=== PATIENT | female | born 1955 | race African-American/Black ===

== ENCOUNTER 2017-04-03 04:23 | Emergency (ER) | payer OTHER, MEDICAID ==
[~2017-04-03] VITALS: Ht 170.2 cm; Wt 81.6 kg
[~2017-04-03 04:23] MED LIST: ALBU6.7H IH; AMLO2.5T45 PO; ASPI-1159 PO; GUAI120015 PO; LEVO500T89 PO; LISI-604 PO; METO50TA5 PO; P20 PO
[2017-04-03 05:15] LABS: BASOPHILS % 1.3 % (0.0-2.0); HEMATOCRIT. 31.7 % (36.0-48.0); HEMOGLOBIN. 10.7 g/dL (12.0-16.0); LYMPHOCYTES % 18.2 % (20.0-50.0); MEAN CORPUSCULAR HEMOGLOBIN 32.4 pg (28.0-32.0); MEAN CORPUSCULAR VOLUME 96.3 fL (81.0-99.0); MEAN PLATELET VOLUME 8.1 fl (7.4-10.4); MONOCYTES % 7.4 % (2.0-8.0); NEUTROPHILS % 67.1 % (40.0-76.0); PLATELET 227 x1000/uL (130-400); RED CELL DISTRIBUTION WIDTH 15.1 % (11.6-14.6)
[2017-04-03 05:35] LABS: CARBON DIOXIDE 24 mEq/L (21-32); CHLORIDE 110 mEq/L (98-107)
[2017-04-03] MEDS: ENALAPRIL 2.5MG/2ML VIAL 2ML IV ONE (05:37)
[2017-04-03 07:56] VITALS: BP 144/62
== END 2017-04-03 07:57 | disposition home or self-care (01) ==
LOC: ER 04:23
DX: R04.0 Epistaxis (principal); I10 Essential (primary) hypertension; Z79.82 Long term (current) use of aspirin
CPT/HCPCS: 36415; 80053; 85025; 85610; 99284; J3490

== ENCOUNTER 2018-11-06 20:03 | Emergency (ER) | payer OTHER, MEDICAID ==
[~2018-11-06] VITALS: Ht 167.6 cm; Wt 83.0 kg
[~2018-11-06 20:03] MED LIST changes: -ASPI-1159 PO; +ASPI-1393 PO; +METO-539 PO; -METO50TA5 PO
[2018-11-06 22:47] LABS: HEMATOCRIT 41.3 % (36.0-48.0); HEMOGLOBIN 13.9 g/dL (12.0-16.0); MEAN CORPUSCULAR HEMOGLOBIN 31.3 pg (28.0-32.0); MEAN CORPUSCULAR VOLUME 93.2 fL (81.0-99.0); PLATELET 216 x1000/uL (130-400); RED BLOOD CELL COUNT 4.43 mill/uL (4.2-5.4); RED CELL DISTRIBUTION WIDTH 14.9 % (11.6-14.6)
[2018-11-06 22:55] LABS: CHLORIDE 105 mEq/L (98-107)
[2018-11-06] MEDS: METOPROLOL TARTRATE 50MG TABLET PO ONE (23:03)
[2018-11-06] MEDS: AMLODIPINE 10MG TABLET PO ONE (23:04)
[2018-11-06] MEDS: LISINOPRIL 20MG TABLET PO ONE (23:04)
[2018-11-07] MEDS: KETOROLAC 30MG/ML VIAL IV ONE (00:59)
[2018-11-07 01:37] VITALS: BP 145/70
== END 2018-11-07 01:59 | disposition home or self-care (01) ==
LOC: ER 20:03
DX: I10 Essential (primary) hypertension (principal); R20.2 Paresthesia of skin; J44.9 Chronic obstructive pulmonary disease, unspecified; Z79.899 Other long term (current) drug therapy
CPT/HCPCS: 36415; 80053; 85027; 93005; 96374; 99284; J1885; Z7610

== ENCOUNTER 2020-10-25 02:06 | Inpatient (IN) | payer MEDICARE, MEDICAID ==
[2020-10-25] VITALS (58 sets, daily range): BP systolic 108–167; BP diastolic 45–82
[~2020-10-25] VITALS: Ht 167.6 cm; Wt 84.8 kg
[~2020-10-25 02:06] MED LIST changes: -ALBU6.7H IH; +ALBU6.7H11 IH; -ASPI-1393 PO; +ASPI-1497 PO; -LISI-604 PO; +LISI20TA31 PO
[2020-10-25] MEDS ORDERED: MORPHINE SULFATE 4 MG/ML CPJ (NOT FOR IM USE) IV STA (02:17)
[2020-10-25] MEDS ORDERED: METHYLPREDNISOLONE SOD SUCC 125 MG/2 ML VIAL IV STA (02:17)
[2020-10-25] MEDS ORDERED: ONDANSETRON HCL 4MG/2ML INJ IV STA (02:17)
[2020-10-25] MEDS ORDERED: IPRATROPIUM BROMIDE (0.02%) 0.5MG/2.5ML NEB HHN STA (02:17)
[2020-10-25] MEDS ORDERED: ALBUTEROL (0.083%) 2.5MG/3ML NEB HHN SCH (02:30)
[2020-10-25] MEDS ORDERED: MIDAZOLAM HCL 100 MG in DEXT 5% WATER 80 ML IV ONE (02:30)
[2020-10-25] MEDS ORDERED: VECURONIUM BROMIDE 10 MG/VIAL IV ONE ×2 (02:30→07:50)
[2020-10-25] MEDS ORDERED: PROPOFOL 10MG/ML 100ML 100 ML IV ONE (02:30)
[2020-10-25] MEDS ORDERED: MIDAZOLAM HCL 100 MG in SODIUM CHLORIDE 0.9% 80 ML IV PRN (02:30)
[2020-10-25] MEDS ORDERED: ETOMIDATE 2MG/ML 10ML VIAL IV ONE ×2 (02:30→07:50)
[2020-10-25] MEDS ORDERED: MAGNESIUM 2 G PREMIX 50 ML IV ONE (02:30)
[2020-10-25 03:06] LABS: BASOPHILS % 0.6 % (0.0-2.0); EOSINOPHILS % 2.2 % (0.0-5.0); HEMATOCRIT. 37.9 % (36.0-48.0); HEMOGLOBIN. 12.4 g/dL (12.0-16.0); LYMPHOCYTES % 15.5 % (20.0-50.0); MEAN CORPUSCULAR VOLUME 97.5 fL (81.0-99.0); MEAN PLATELET VOLUME 9.4 fl (7.4-10.4); MONOCYTES % 4.1 % (2.0-8.0); NEUTROPHILS % 77.6 % (40.0-76.0); PLATELET 184 x1000/uL (130-400); RED BLOOD CELL COUNT 3.89 mill/uL (4.2-5.4)
[2020-10-25 03:13] LABS: CHLORIDE 111 mEq/L (98-107)
[2020-10-25 06:07] LABS: BG CARBOXYHEMOGLOBIN 0.2 % (0.5-1.5); BG FRACTION INSPIRED OXYGEN 100; BG HCO3 ACT 25.8 mmol/L (22.0-26.0); BG METHEMOGLOBIN 0.1 % (0.0-1.5); BG OXYHEMOGLOBIN 94.7 % (94.0-97.0); BG PCO2 57.4 mmHg (35.0-45.0); BG PO2 85.5 mmHg (75.0-100.0); BG SAMPLE SITE RIGHT RADIAL; BG TOTAL HEMOGLOBIN 12.7 g/dL (12.0-18.0); BG VENT MODE VENT - AC
[2020-10-25] MEDS ORDERED: SODIUM CHLORIDE 0.9% 10ML VIAL ONE (07:50)
[2020-10-25] MEDS ORDERED: ACETAMINOPHEN 325MG TABLET PO PRN (09:45)
[2020-10-25] MEDS: PANTOPRAZOLE SODIUM 40 MG/VIAL IV SCH (10:05)
[2020-10-25] MEDS: ENOXAPARIN 40MG/0.4ML SYR SUBCUT SCH (10:06)
[2020-10-25] MEDS: FUROSEMIDE 40MG/4ML VIAL IVP SCH ×2 (10:06→16:55)
[2020-10-25 11:09] LABS: *BARBITURATES SCREEN URINE NEGATIVE (NEGATIVE); *BENZODIAZEPINES SCREEN URINE PRESUMTIVE POSITIVE (NEGATIVE); METHADONE URINE SCREEN NEGATIVE (NEGATIVE); OPIATES URINE SCREEN PRESUMTIVE POSITIVE (NEGATIVE); PHENCYCLIDINE URINE SCREEN NEGATIVE (NEGATIVE)
[2020-10-25 11:10] LABS: *AMPHETAMINES SCREEN URINE NEGATIVE (NEGATIVE); *COCAINE SCREEN URINE NEGATIVE (NEGATIVE); CANNABINOID URINE SCREEN NEGATIVE (NEGATIVE)
[2020-10-25 12:50] LABS: CLARITY URINE CLOUDY (CLEAR); COLOR URINE DARK YELLOW (YELLOW); KETONES URINE NEGATIVE (NEGATIVE); LEUKOCYTE ESTERASE URINE NEGATIVE (NEGATIVE); NITRITE URINE NEGATIVE (NEGATIVE); OCCULT BLOOD URINE NEGATIVE (NEGATIVE); PH URINE 5.5 (4.5-8.0); PROTEIN URINE 3+ (NEGATIVE)
[2020-10-25] MEDS: IPRATROPIUM/ALBUTEROL 0.5-3(2.5)MG/3ML NEB HHN SCH ×2 (13:14→20:24)
[2020-10-25] MEDS: FENTANYL CITRATE/PF 2,500 MCG in SODIUM CHLORIDE 0.9% 200 ML IV PRN (13:55)
[2020-10-25 14:20] LABS: PROTHROMBIN TIME 11.1 sec (9.6-11.0)
[2020-10-25] MEDS: METHYLPREDNISOLONE SOD SUCC 40 MG/ML VIAL IV SCH (16:55)
[2020-10-26] VITALS (73 sets, daily range): BP systolic 99–167; BP diastolic 39–76
[2020-10-26] MEDS ORDERED: IOHEXOL-350 100 ML BOTTLE ONE (00:47)
[2020-10-26] MEDS: IPRATROPIUM/ALBUTEROL 0.5-3(2.5)MG/3ML NEB HHN SCH ×4 (01:22→20:02)
[2020-10-26] MEDS: MIDAZOLAM HCL 100 MG in SODIUM CHLORIDE 0.9% 80 ML IV PRN (05:02)
[2020-10-26 05:29] LABS: BASOPHILS % 0.4 % (0.0-2.0); HEMATOCRIT. 35.9 % (36.0-48.0); HEMOGLOBIN. 11.9 g/dL (12.0-16.0); LYMPHOCYTES % 14.3 % (20.0-50.0); MEAN CORPUSCULAR HEMOGLOBIN 31.8 pg (28.0-32.0); MEAN CORPUSCULAR VOLUME 96.2 fL (81.0-99.0); MEAN PLATELET VOLUME 9.9 fl (7.4-10.4); MONOCYTES % 5.8 % (2.0-8.0); NEUTROPHILS % 79.5 % (40.0-76.0); PLATELET 197 x1000/uL (130-400); RED BLOOD CELL COUNT 3.73 mill/uL (4.2-5.4); RED CELL DISTRIBUTION WIDTH 15.2 % (11.6-14.6)
[2020-10-26] MEDS: ENOXAPARIN 40MG/0.4ML SYR SUBCUT SCH (08:12)
[2020-10-26] MEDS: PANTOPRAZOLE SODIUM 40 MG/VIAL IV SCH (08:12)
[2020-10-26] MEDS: FUROSEMIDE 40MG/4ML VIAL IVP SCH (08:12)
[2020-10-26] MEDS: METHYLPREDNISOLONE SOD SUCC 40 MG/ML VIAL IV SCH ×2 (08:12→16:59)
[2020-10-26 08:57] LABS: BG CARBOXYHEMOGLOBIN 0.2 % (0.5-1.5); BG DEOXYHEMOGLOBIN 4.5 % (0.0-5.0); BG FRACTION INSPIRED OXYGEN 60; BG HCO3 ACT 20.4 mmol/L (22.0-26.0); BG METHEMOGLOBIN 0.3 % (0.0-1.5); BG OXYGEN SATURATION 95.5 % (92.0-98.5); BG PCO2 31.4 mmHg (35.0-45.0); BG PO2 79.7 mmHg (75.0-100.0); BG SAMPLE SITE RIGHT RADIAL; BG TOTAL HEMOGLOBIN 12.4 g/dL (12.0-18.0); BG VENT MODE VENT - AC
[2020-10-26] MEDS ORDERED: PIPERACILLIN/TAZOBACTAM 3.375 G in DEXTROSE 5% WATER 50 ML IV SCH (09:15)
[2020-10-26] MEDS: PIPERACILLIN/TAZOBACTAM 2.25G in DEXTROSE 5% WATER 50ML IV SCH ×3 (10:20→23:09)
[2020-10-27] VITALS (73 sets, daily range): BP systolic 106–185; BP diastolic 53–102
[2020-10-27] MEDS: IPRATROPIUM/ALBUTEROL 0.5-3(2.5)MG/3ML NEB HHN SCH ×4 (02:02→21:27)
[2020-10-27 05:50] LABS: BASOPHILS % 0.2 % (0.0-2.0); HEMATOCRIT. 41.2 % (36.0-48.0); HEMOGLOBIN. 13.7 g/dL (12.0-16.0); LYMPHOCYTES % 10.9 % (20.0-50.0); MEAN CORPUSCULAR HEMOGLOBIN 32.1 pg (28.0-32.0); MEAN CORPUSCULAR VOLUME 96.7 fL (81.0-99.0); MEAN PLATELET VOLUME 9.6 fl (7.4-10.4); MONOCYTES % 6.7 % (2.0-8.0); NEUTROPHILS % 82.2 % (40.0-76.0); PLATELET 218 x1000/uL (130-400); RED BLOOD CELL COUNT 4.26 mill/uL (4.2-5.4); RED CELL DISTRIBUTION WIDTH 15.4 % (11.6-14.6)
[2020-10-27] MEDS: PIPERACILLIN/TAZOBACTAM 2.25G in DEXTROSE 5% WATER 50ML IV SCH ×4 (06:00→23:38)
[2020-10-27] MEDS: PANTOPRAZOLE SODIUM 40 MG/VIAL IV SCH (08:34)
[2020-10-27] MEDS: METHYLPREDNISOLONE SOD SUCC 40 MG/ML VIAL IV SCH ×2 (08:34→17:38)
[2020-10-27] MEDS: ENOXAPARIN 40MG/0.4ML SYR SUBCUT SCH (08:35)
[2020-10-27 08:43] LABS: BG BASE EXCESS 2.2 mmol/L (-2.0-2.0); BG CARBOXYHEMOGLOBIN 0.5 % (0.5-1.5); BG DEOXYHEMOGLOBIN 6.9 % (0.0-5.0); BG FRACTION INSPIRED OXYGEN 60; BG HCO3 ACT 26.6 mmol/L (22.0-26.0); BG METHEMOGLOBIN 0.2 % (0.0-1.5); BG OXYGEN SATURATION 93.1 % (92.0-98.5); BG OXYHEMOGLOBIN 92.4 % (94.0-97.0); BG PCO2 40.6 mmHg (35.0-45.0); BG PH 7.434 (7.350-7.450); BG PO2 69.1 mmHg (75.0-100.0); BG SAMPLE SITE RIGHT RADIAL; BG TOTAL HEMOGLOBIN 13.9 g/dL (12.0-18.0); BG VENT MODE VENT - AC
[2020-10-27] MEDS: AMLODIPINE 5MG TABLET PO SCH (10:19)
[2020-10-27] MEDS: MIDAZOLAM HCL 100 MG in SODIUM CHLORIDE 0.9% 80 ML IV PRN (10:46)
[2020-10-27] MEDS: FENTANYL CITRATE/PF 2,500 MCG in SODIUM CHLORIDE 0.9% 200 ML IV PRN (10:47)
[2020-10-27] MEDS: SODIUM CHLORIDE 0.45% 1,000 ML IV SCH (11:33)
[2020-10-27] MEDS: DOCUSATE SODIUM SUGAR FREE 100MG/10ML UDC NG SCH (14:24)
[2020-10-27] MEDS: SILDENAFIL CITRATE 20MG TABLET PO SCH ×2 (14:24→21:27)
[2020-10-28] VITALS (96 sets, daily range): BP systolic 113–173; BP diastolic 56–113
[2020-10-28] MEDS: IPRATROPIUM/ALBUTEROL 0.5-3(2.5)MG/3ML NEB HHN SCH ×4 (02:13→19:51)
[2020-10-28 04:37] LABS: BASOPHILS % 0.4 % (0.0-2.0); HEMATOCRIT. 38.5 % (36.0-48.0); HEMOGLOBIN. 12.4 g/dL (12.0-16.0); MEAN CORPUSCULAR HEMOGLOBIN 31.1 pg (28.0-32.0); MEAN CORPUSCULAR VOLUME 96.4 fL (81.0-99.0); MEAN PLATELET VOLUME 9.3 fl (7.4-10.4); MONOCYTES % 6.3 % (2.0-8.0); NEUTROPHILS % 83.3 % (40.0-76.0); PLATELET 222 x1000/uL (130-400); RED CELL DISTRIBUTION WIDTH 15.3 % (11.6-14.6)
[2020-10-28] MEDS: SILDENAFIL CITRATE 20MG TABLET PO SCH ×3 (05:22→22:05)
[2020-10-28] MEDS: PIPERACILLIN/TAZOBACTAM 2.25G in DEXTROSE 5% WATER 50ML IV SCH ×4 (05:23→23:03)
[2020-10-28] MEDS: SODIUM CHLORIDE 0.45% 1,000 ML IV SCH (06:34)
[2020-10-28 07:51] LABS: BG BASE EXCESS -2.4 mmol/L (-2.0-2.0); BG CARBOXYHEMOGLOBIN 0.4 % (0.5-1.5); BG DEOXYHEMOGLOBIN 9.9 % (0.0-5.0); BG FRACTION INSPIRED OXYGEN 60; BG HCO3 ACT 23.6 mmol/L (22.0-26.0); BG METHEMOGLOBIN 0.1 % (0.0-1.5); BG OXYGEN SATURATION 90.1 % (92.0-98.5); BG OXYHEMOGLOBIN 89.6 % (94.0-97.0); BG PCO2 45.3 mmHg (35.0-45.0); BG PH 7.334 (7.350-7.450); BG PO2 63.2 mmHg (75.0-100.0); BG SAMPLE SITE RIGHT BRACHIAL; BG TOTAL HEMOGLOBIN 13.5 g/dL (12.0-18.0); BG TOTAL RESPIRATORY RATE 16 b/min; BG VENT MODE VENT - AC
[2020-10-28] MEDS: AMLODIPINE 5MG TABLET PO SCH ×2 (08:57→21:11)
[2020-10-28] MEDS: PANTOPRAZOLE SODIUM 40 MG/VIAL IV SCH (08:57)
[2020-10-28] MEDS: ENOXAPARIN 40MG/0.4ML SYR SUBCUT SCH (08:57)
[2020-10-28] MEDS: DOCUSATE SODIUM SUGAR FREE 100MG/10ML UDC NG SCH (08:57)
[2020-10-28] MEDS: METHYLPREDNISOLONE SOD SUCC 40 MG/ML VIAL IV SCH ×2 (08:58→17:17)
[2020-10-28] MEDS ORDERED: HYDRALAZINE 20MG/ML VIAL IV NR (09:30)
[2020-10-28 11:13] LABS: BG BASE EXCESS 0.2 mmol/L (-2.0-2.0); BG CARBOXYHEMOGLOBIN 0.3 % (0.5-1.5); BG DEOXYHEMOGLOBIN 14.2 % (0.0-5.0); BG FRACTION INSPIRED OXYGEN 40; BG METHEMOGLOBIN 0.3 % (0.0-1.5); BG OXYGEN SATURATION 85.7 % (92.0-98.5); BG OXYHEMOGLOBIN 85.2 % (94.0-97.0); BG PCO2 41.2 mmHg (35.0-45.0); BG PH 7.401 (7.350-7.450); BG PO2 51.6 mmHg (75.0-100.0); BG SAMPLE SITE RIGHT RADIAL; BG TOTAL HEMOGLOBIN 13.8 g/dL (12.0-18.0); BG VENT MODE VENT - CPAP
[2020-10-28] MEDS: MIDAZOLAM HCL 100 MG in SODIUM CHLORIDE 0.9% 80 ML IV PRN ×2 (13:06→20:04)
[2020-10-28 13:51] LABS: CLARITY URINE TURBID (CLEAR); COLOR URINE RED (YELLOW); KETONES URINE NEGATIVE (NEGATIVE); LEUKOCYTE ESTERASE URINE 2+ (NEGATIVE); NITRITE URINE POSITIVE (NEGATIVE); OCCULT BLOOD URINE 2+ (NEGATIVE); PROTEIN URINE 2+ (NEGATIVE); SPECIFIC GRAVITY URINE 1.025 (1.005-1.030); UROBILINOGEN URINE 0.2 E.U./dL (0.2-1.0)
[2020-10-29] VITALS (95 sets, daily range): BP systolic 105–191; BP diastolic 33–116
[2020-10-29] MEDS: IPRATROPIUM/ALBUTEROL 0.5-3(2.5)MG/3ML NEB HHN SCH ×4 (01:47→19:45)
[2020-10-29] MEDS: SODIUM CHLORIDE 0.45% 1,000 ML IV SCH (03:53)
[2020-10-29 04:30] LABS: BASOPHILS % 0.3 % (0.0-2.0); HEMATOCRIT. 37.6 % (36.0-48.0); HEMOGLOBIN. 12.5 g/dL (12.0-16.0); LYMPHOCYTES % 9.3 % (20.0-50.0); MEAN CORPUSCULAR HEMOGLOBIN 31.9 pg (28.0-32.0); MEAN CORPUSCULAR VOLUME 96.3 fL (81.0-99.0); MEAN PLATELET VOLUME 9.3 fl (7.4-10.4); MONOCYTES % 7.4 % (2.0-8.0); PLATELET 234 x1000/uL (130-400); RED CELL DISTRIBUTION WIDTH 15.1 % (11.6-14.6)
[2020-10-29] MEDS: SILDENAFIL CITRATE 20MG TABLET PO SCH ×3 (05:34→22:08)
[2020-10-29] MEDS: PIPERACILLIN/TAZOBACTAM 2.25G in DEXTROSE 5% WATER 50ML IV SCH ×4 (05:34→23:52)
[2020-10-29] MEDS: DOCUSATE SODIUM SUGAR FREE 100MG/10ML UDC NG SCH (08:58)
[2020-10-29] MEDS: METHYLPREDNISOLONE SOD SUCC 40 MG/ML VIAL IV SCH ×2 (08:58→17:28)
[2020-10-29] MEDS: AMLODIPINE 5MG TABLET PO SCH ×2 (08:58→20:54)
[2020-10-29] MEDS: PANTOPRAZOLE SODIUM 40 MG/VIAL IV SCH (09:04)
[2020-10-29] MEDS: FENTANYL CITRATE/PF 2,500 MCG in SODIUM CHLORIDE 0.9% 200 ML IV PRN (16:44)
[2020-10-30] VITALS (93 sets, daily range): BP systolic 110–166; BP diastolic 43–121
[2020-10-30] MEDS: IPRATROPIUM/ALBUTEROL 0.5-3(2.5)MG/3ML NEB HHN SCH ×4 (01:43→19:50)
[2020-10-30] MEDS: SODIUM CHLORIDE 0.45% 1,000 ML IV SCH ×2 (03:31→22:36)
[2020-10-30 04:42] LABS: BASOPHILS % 0.2 % (0.0-2.0); HEMATOCRIT. 37.7 % (36.0-48.0); HEMOGLOBIN. 12.6 g/dL (12.0-16.0); LYMPHOCYTES % 7.5 % (20.0-50.0); MEAN CORPUSCULAR HEMOGLOBIN 32.3 pg (28.0-32.0); MEAN CORPUSCULAR VOLUME 96.3 fL (81.0-99.0); MEAN PLATELET VOLUME 9.4 fl (7.4-10.4); MONOCYTES % 9.2 % (2.0-8.0); NEUTROPHILS % 83.1 % (40.0-76.0); PLATELET 213 x1000/uL (130-400); RED BLOOD CELL COUNT 3.92 mill/uL (4.2-5.4); RED CELL DISTRIBUTION WIDTH 15.3 % (11.6-14.6)
[2020-10-30] MEDS: MIDAZOLAM HCL 100 MG in SODIUM CHLORIDE 0.9% 80 ML IV PRN (04:50)
[2020-10-30] MEDS: PIPERACILLIN/TAZOBACTAM 2.25G in DEXTROSE 5% WATER 50ML IV SCH ×3 (06:13→17:26)
[2020-10-30] MEDS: SILDENAFIL CITRATE 20MG TABLET PO SCH ×3 (06:13→22:31)
[2020-10-30 07:47] LABS: BG BASE EXCESS 0.1 mmol/L (-2.0-2.0); BG CARBOXYHEMOGLOBIN 0.5 % (0.5-1.5); BG DEOXYHEMOGLOBIN 6.3 % (0.0-5.0); BG FRACTION INSPIRED OXYGEN 70; BG METHEMOGLOBIN 0.1 % (0.0-1.5); BG OXYGEN SATURATION 93.7 % (92.0-98.5); BG OXYHEMOGLOBIN 93.1 % (94.0-97.0); BG PO2 71.4 mmHg (75.0-100.0); BG SAMPLE SITE RIGHT RADIAL; BG TOTAL HEMOGLOBIN 13.5 g/dL (12.0-18.0); BG VENT MODE VENT - SIMV
[2020-10-30] MEDS: DOCUSATE SODIUM SUGAR FREE 100MG/10ML UDC NG SCH (10:21)
[2020-10-30] MEDS: AMLODIPINE 5MG TABLET PO SCH ×2 (10:21→20:24)
[2020-10-30] MEDS: PANTOPRAZOLE SODIUM 40 MG/VIAL IV SCH (10:21)
[2020-10-30] MEDS: METHYLPREDNISOLONE SOD SUCC 40 MG/ML VIAL IV SCH ×2 (10:21→17:26)
[2020-10-30] MEDS: HYDRALAZINE 20MG/ML VIAL IV PRN (15:51)
[2020-10-31] VITALS (89 sets, daily range): BP systolic 109–196; BP diastolic 57–98
[2020-10-31] MEDS: IPRATROPIUM/ALBUTEROL 0.5-3(2.5)MG/3ML NEB HHN SCH ×4 (01:41→20:31)
[2020-10-31] MEDS: PIPERACILLIN/TAZOBACTAM 2.25G in DEXTROSE 5% WATER 50ML IV SCH ×4 (02:23→17:36)
[2020-10-31 05:44] LABS: BASOPHILS % 0.2 % (0.0-2.0); HEMATOCRIT. 38.4 % (36.0-48.0); HEMOGLOBIN. 12.5 g/dL (12.0-16.0); MEAN CORPUSCULAR HEMOGLOBIN 31.5 pg (28.0-32.0); MEAN CORPUSCULAR VOLUME 96.9 fL (81.0-99.0); MEAN PLATELET VOLUME 9.7 fl (7.4-10.4); NEUTROPHILS % 69.8 % (40.0-76.0); PLATELET 215 x1000/uL (130-400); RED BLOOD CELL COUNT 3.96 mill/uL (4.2-5.4); RED CELL DISTRIBUTION WIDTH 15.7 % (11.6-14.6)
[2020-10-31] MEDS: SILDENAFIL CITRATE 20MG TABLET PO SCH ×3 (05:55→21:02)
[2020-10-31] MEDS ORDERED: FENTANYL CITRATE/PF 2,500 MCG in SODIUM CHLORIDE 0.9% 200 ML IV PRN (08:19)
[2020-10-31 09:33] LABS: BG BASE EXCESS 0.2 mmol/L (-2.0-2.0); BG CARBOXYHEMOGLOBIN 0.3 % (0.5-1.5); BG DEOXYHEMOGLOBIN 4.6 % (0.0-5.0); BG FRACTION INSPIRED OXYGEN 60; BG HCO3 ACT 25.6 mmol/L (22.0-26.0); BG METHEMOGLOBIN 0.3 % (0.0-1.5); BG OXYGEN SATURATION 95.4 % (92.0-98.5); BG OXYHEMOGLOBIN 94.8 % (94.0-97.0); BG PCO2 44.5 mmHg (35.0-45.0); BG PH 7.378 (7.350-7.450); BG PO2 76.8 mmHg (75.0-100.0); BG SAMPLE SITE RIGHT RADIAL; BG VENT MODE VENT - SIMV
[2020-10-31] MEDS: PANTOPRAZOLE SODIUM 40 MG/VIAL IV SCH (10:04)
[2020-10-31] MEDS: METHYLPREDNISOLONE SOD SUCC 40 MG/ML VIAL IV SCH ×2 (10:04→17:34)
[2020-10-31] MEDS: DOCUSATE SODIUM SUGAR FREE 100MG/10ML UDC NG SCH (10:04)
[2020-10-31] MEDS: AMLODIPINE 5MG TABLET PO SCH ×2 (10:05→21:02)
[2020-10-31 12:38] LABS: BG BASE EXCESS -0.1 mmol/L (-2.0-2.0); BG CARBOXYHEMOGLOBIN 0.7 % (0.5-1.5); BG DEOXYHEMOGLOBIN 6.2 % (0.0-5.0); BG FRACTION INSPIRED OXYGEN 50; BG HCO3 ACT 25.7 mmol/L (22.0-26.0); BG METHEMOGLOBIN 0.1 % (0.0-1.5); BG OXYGEN SATURATION 93.8 % (92.0-98.5); BG PCO2 46.5 mmHg (35.0-45.0); BG PH 7.361 (7.350-7.450); BG PO2 72.8 mmHg (75.0-100.0); BG SAMPLE SITE RIGHT RADIAL; BG VENT MODE VENT - CPAP
[2020-10-31] MEDS: SODIUM CHLORIDE 0.45% 1,000 ML IV SCH (17:34)
[2020-10-31] MEDS: HYDRALAZINE 20MG/ML VIAL IV PRN ×2 (17:35→23:57)
[2020-10-31] MEDS: ONDANSETRON HCL 4MG/2ML INJ IV PRN (20:46)
[2020-11-01] VITALS (66 sets, daily range): BP systolic 126–160; BP diastolic 57–98
[2020-11-01] MEDS: IPRATROPIUM/ALBUTEROL 0.5-3(2.5)MG/3ML NEB HHN SCH ×4 (00:58→20:41)
[2020-11-01 05:48] LABS: BASOPHILS % 0.1 % (0.0-2.0); HEMOGLOBIN. 12.4 g/dL (12.0-16.0); LYMPHOCYTES % 9.2 % (20.0-50.0); MEAN CORPUSCULAR HEMOGLOBIN 31.3 pg (28.0-32.0); MEAN CORPUSCULAR VOLUME 95.8 fL (81.0-99.0); MEAN PLATELET VOLUME 9.6 fl (7.4-10.4); MONOCYTES % 5.8 % (2.0-8.0); NEUTROPHILS % 84.9 % (40.0-76.0); PLATELET 227 x1000/uL (130-400); RED BLOOD CELL COUNT 3.97 mill/uL (4.2-5.4); RED CELL DISTRIBUTION WIDTH 15.6 % (11.6-14.6)
[2020-11-01] MEDS: SILDENAFIL CITRATE 20MG TABLET PO SCH ×3 (06:14→21:15)
[2020-11-01] MEDS: HYDRALAZINE 20MG/ML VIAL IV PRN (06:22)
[2020-11-01] MEDS: AMLODIPINE 5MG TABLET PO SCH ×3 (08:51→21:15)
[2020-11-01] MEDS: DOCUSATE SODIUM SUGAR FREE 100MG/10ML UDC NG SCH (08:51)
[2020-11-01] MEDS: PANTOPRAZOLE SODIUM 40 MG/VIAL IV SCH (08:51)
[2020-11-01] MEDS: METHYLPREDNISOLONE SOD SUCC 40 MG/ML VIAL IV SCH ×2 (08:51→16:39)
[2020-11-01] MEDS: ONDANSETRON HCL 4MG/2ML INJ IV PRN ×2 (09:00→19:59)
[2020-11-01] MEDS ORDERED: BISACODYL 5MG TABLET PO PRN (10:00)
[2020-11-01] MEDS: SODIUM CHLORIDE 0.45% 1,000 ML IV SCH ×2 (12:06→23:36)
[2020-11-02] VITALS (12 sets, daily range): BP systolic 129–155; BP diastolic 47–90
[2020-11-02] MEDS: IPRATROPIUM/ALBUTEROL 0.5-3(2.5)MG/3ML NEB HHN SCH ×4 (01:41→21:42)
[2020-11-02] MEDS: ONDANSETRON HCL 4MG/2ML INJ IV PRN (01:43)
[2020-11-02] MEDS: SILDENAFIL CITRATE 20MG TABLET PO SCH ×3 (06:25→21:30)
[2020-11-02 07:10] LABS: BASOPHILS % 0.2 % (0.0-2.0); EOSINOPHILS % 0.6 % (0.0-5.0); HEMATOCRIT. 34.9 % (36.0-48.0); HEMOGLOBIN. 11.6 g/dL (12.0-16.0); LYMPHOCYTES % 18.5 % (20.0-50.0); MEAN CORPUSCULAR HEMOGLOBIN 31.9 pg (28.0-32.0); MEAN CORPUSCULAR VOLUME 96.2 fL (81.0-99.0); MEAN PLATELET VOLUME 9.2 fl (7.4-10.4); MONOCYTES % 9.4 % (2.0-8.0); NEUTROPHILS % 71.3 % (40.0-76.0); PLATELET 185 x1000/uL (130-400); RED BLOOD CELL COUNT 3.62 mill/uL (4.2-5.4); RED CELL DISTRIBUTION WIDTH 14.7 % (11.6-14.6)
[2020-11-02 07:27] LABS: CHLORIDE 103 mEq/L (98-107)
[2020-11-02] MEDS: DOCUSATE SODIUM SUGAR FREE 100MG/10ML UDC NG SCH (08:21)
[2020-11-02] MEDS: METHYLPREDNISOLONE SOD SUCC 40 MG/ML VIAL IV SCH (08:21)
[2020-11-02] MEDS: SODIUM CHLORIDE 0.45% 1,000 ML IV SCH (08:21)
[2020-11-02] MEDS: PANTOPRAZOLE SODIUM 40 MG/VIAL IV SCH (08:21)
[2020-11-02] MEDS: ASPIRIN 81MG EC TABLET PO SCH (08:21)
[2020-11-02] MEDS: AMLODIPINE 10MG TABLET PO SCH ×2 (08:22→21:30)
[2020-11-02] MEDS: PREDNISONE 20MG TABLET PO SCH (08:22)
[2020-11-02] MEDS: LISINOPRIL 20MG TABLET PO SCH ×2 (08:22→21:33)
[2020-11-02] MEDS: METOPROLOL TARTRATE 50MG TABLET PO SCH ×2 (08:23→21:30)
[2020-11-03] VITALS (10 sets, daily range): BP systolic 116–156; BP diastolic 46–87
[2020-11-03] MEDS: SILDENAFIL CITRATE 20MG TABLET PO SCH ×3 (06:45→20:34)
[2020-11-03] MEDS: IPRATROPIUM BROMIDE (0.02%) 0.5MG/2.5ML NEB HHN SCH ×2 (07:02→21:38)
[2020-11-03] MEDS: DOCUSATE SODIUM SUGAR FREE 100MG/10ML UDC NG SCH (09:09)
[2020-11-03] MEDS: PANTOPRAZOLE SODIUM 40 MG/VIAL IV SCH (09:09)
[2020-11-03] MEDS: AMLODIPINE 10MG TABLET PO SCH ×2 (09:10→20:34)
[2020-11-03] MEDS: ASPIRIN 81MG EC TABLET PO SCH (09:10)
[2020-11-03] MEDS: PREDNISONE 20MG TABLET PO SCH ×2 (09:10→16:53)
[2020-11-03] MEDS: METOPROLOL TARTRATE 50MG TABLET PO SCH ×2 (09:10→20:34)
[2020-11-03] MEDS: LISINOPRIL 20MG TABLET PO SCH ×2 (09:10→20:34)
[2020-11-03] MEDS: IPRATROPIUM/ALBUTEROL 0.5-3(2.5)MG/3ML NEB HHN SCH (10:05)
[2020-11-03] MEDS ORDERED: GUAIFENESIN-DM 200MG-20MG/10ML UDC PO PRN (11:00)
[2020-11-03] MEDS: LORAZEPAM 2MG/ML CPJ IV PRN ×2 (14:54→20:27)
[2020-11-04] VITALS (13 sets, daily range): BP systolic 106–166; BP diastolic 49–82
[2020-11-04] MEDS: SILDENAFIL CITRATE 20MG TABLET PO SCH ×3 (06:20→22:46)
[2020-11-04] MEDS ORDERED: DOCUSATE SODIUM SUGAR FREE 100MG/10ML UDC PO SCH (09:00)
[2020-11-04] MEDS: PANTOPRAZOLE SODIUM 40 MG/VIAL IV SCH (09:56)
[2020-11-04] MEDS: PREDNISONE 20MG TABLET PO SCH ×2 (09:57→16:30)
[2020-11-04] MEDS: ASPIRIN 81MG EC TABLET PO SCH (09:57)
[2020-11-04] MEDS: AMLODIPINE 10MG TABLET PO SCH ×2 (10:02→21:05)
[2020-11-04] MEDS: LISINOPRIL 20MG TABLET PO SCH ×2 (10:04→21:06)
[2020-11-04] MEDS: DOCUSATE SODIUM 100MG CAPSULE PO SCH (10:06)
[2020-11-04] MEDS ORDERED: LIDOCAINE HCL/PF 1% 2ML VIAL ONE (11:38)
[2020-11-04] MEDS: IPRATROPIUM BROMIDE (0.02%) 0.5MG/2.5ML NEB HHN SCH ×2 (12:54→20:30)
[2020-11-04 13:22] LABS: BG BASE EXCESS 0.7 mmol/L (-2.0-2.0); BG CARBOXYHEMOGLOBIN 0.7 % (0.5-1.5); BG DEOXYHEMOGLOBIN 16.5 % (0.0-5.0); BG FRACTION INSPIRED OXYGEN 21; BG HCO3 ACT 24.6 mmol/L (22.0-26.0); BG METHEMOGLOBIN 0.2 % (0.0-1.5); BG OXYGEN SATURATION 83.4 % (92.0-98.5); BG OXYHEMOGLOBIN 82.6 % (94.0-97.0); BG PCO2 36.9 mmHg (35.0-45.0); BG PH 7.441 (7.350-7.450); BG PO2 47.3 mmHg (75.0-100.0); BG SAMPLE SITE RIGHT RADIAL; BG VENT MODE ROOM AIR
[2020-11-04] MEDS: LORAZEPAM 2MG/ML CPJ IV PRN (14:20)
[2020-11-04] MEDS: METOPROLOL TARTRATE 25MG TABLET PO SCH (20:10)
[2020-11-05] VITALS (9 sets, daily range): BP systolic 109–147; BP diastolic 53–89
[2020-11-05] MEDS: SILDENAFIL CITRATE 20MG TABLET PO SCH ×2 (05:42→14:33)
[2020-11-05] MEDS ORDERED: AMLO2.5T45 PO (08:29)
[2020-11-05] MEDS ORDERED: P20 PO (08:29)
[2020-11-05] MEDS ORDERED: METO25TA6 PO (08:29)
[2020-11-05] MEDS ORDERED: REV20 PO (08:29)
[2020-11-05] MEDS ORDERED: LISI20TA31 PO (08:29)
[2020-11-05] MEDS ORDERED: ALBU6.7H11 IH (08:29)
[2020-11-05] MEDS: IPRATROPIUM BROMIDE (0.02%) 0.5MG/2.5ML NEB HHN SCH ×2 (08:54→14:12)
[2020-11-05] MEDS: DOCUSATE SODIUM 100MG CAPSULE PO SCH (09:00)
[2020-11-05] MEDS: ASPIRIN 81MG EC TABLET PO SCH (09:12)
[2020-11-05] MEDS: PANTOPRAZOLE SODIUM 40 MG/VIAL IV SCH (09:14)
[2020-11-05] MEDS: METOPROLOL TARTRATE 25MG TABLET PO SCH (09:15)
[2020-11-05] MEDS: AMLODIPINE 10MG TABLET PO SCH (09:15)
[2020-11-05] MEDS: LISINOPRIL 20MG TABLET PO SCH (09:15)
[2020-11-05] MEDS: PREDNISONE 20MG TABLET PO SCH (09:16)
== END 2020-11-05 15:25 | disposition home or self-care (01) | DRG 870 ==
LOC: ER 02:06 → MICUSO 05:35 → EDBEDREQTM 05:40 → EDBEDREQ 05:40 → ENRESERV 07:16 → MICUNO 10-28 17:30 → 3WST 11-01 22:00
PROVIDERS: ADMIT Internal Medicine; ATTEND Internal Medicine
PROC: 5A1955Z Respiratory Ventilation, Greater than 96 Consecutive Hours (ICD-10-PCS; principal; 2020-10-25)
PROC: 0BH17EZ Insertion of Endotracheal Airway into Trachea, Via Natural or Artificial Opening (ICD-10-PCS; 2020-10-25)
PROC: 05HY33Z Insertion of Infusion Device into Upper Vein, Percutaneous Approach (ICD-10-PCS; 2020-10-27)
PROC: B54MZZA Ultrasonography of Right Upper Extremity Veins, Guidance (ICD-10-PCS; 2020-10-27)
DX: A41.9 Sepsis, unspecified organism (principal); J96.00 Acute respiratory failure, unspecified whether with hypoxia or hypercapnia; J18.9 Pneumonia, unspecified organism; I50.33 Acute on chronic diastolic (congestive) heart failure; E44.1 Mild protein-calorie malnutrition; N17.9 Acute kidney failure, unspecified; I47.2 Ventricular tachycardia; E87.8 Other disorders of electrolyte and fluid balance, not elsewhere classified; I27.20 Pulmonary hypertension, unspecified; F17.210 Nicotine dependence, cigarettes, uncomplicated; Z20.822 Contact with and (suspected) exposure to COVID-19; I11.0 Hypertensive heart disease with heart failure; I35.0 Nonrheumatic aortic (valve) stenosis; I34.0 Nonrheumatic mitral (valve) insufficiency; K59.00 Constipation, unspecified; E86.1 Hypovolemia; I25.10 Atherosclerotic heart disease of native coronary artery without angina pectoris; I49.3 Ventricular premature depolarization; J43.9 Emphysema, unspecified; R31.9 Hematuria, unspecified; Z68.30 Body mass index [BMI] 30.0-30.9, adult; R11.10 Vomiting, unspecified
CPT/HCPCS: 31500; 36415; 36600; 71045; 71275; 76937; 80048; 80053; 80305; 81003; 82375; 82805; 83036; 83605; 83735; 83880; 84145; 84443; 84484; 85025; 87070; 92610; 93005; 93306; 94002; 94003; 94640; 97110; 97162; 97166; 97530; 99291; A6261; C1725; C9113; J0360; J1650; J1940; J2060; J2250; J2270; J2405; J2543; J2704; J2920; J2930; J3010; J3475; J3490; J7050; J7060; J7512; Q9967; U0003; U0005; A4315

== ENCOUNTER 2021-05-26 12:30 | Inpatient (IN) | payer MEDICARE, MEDICAID ==
[~2021-05-26] VITALS: Ht 167.6 cm; Wt 82.6 kg
[~2021-05-26 12:30] MED LIST changes: -ALBU6.7H11 IH; +ALBU6.7H15 IH; -LEVO500T89 PO; -METO-539 PO; +METO25TA6 PO; +REV20 PO
[2021-05-26] MEDS ORDERED: IOHEXOL-350 100 ML BOTTLE ONE (13:02)
[2021-05-26 13:13] LABS: BASOPHILS % 1.8 % (0.0-2.0); EOSINOPHILS % 3.3 % (0.0-5.0); HEMATOCRIT. 29.5 % (36.0-48.0); HEMOGLOBIN. 9.6 g/dL (12.0-16.0); LYMPHOCYTES % 28.4 % (20.0-50.0); MEAN CORPUSCULAR HEMOGLOBIN 30.5 pg (28.0-32.0); MEAN CORPUSCULAR VOLUME 94.1 fL (81.0-99.0); MEAN PLATELET VOLUME 7.5 fl (7.4-10.4); MONOCYTES % 11.8 % (2.0-8.0); NEUTROPHILS % 54.7 % (40.0-76.0); PLATELET 316 x1000/uL (130-400); RED BLOOD CELL COUNT 3.13 mill/uL (4.2-5.4)
[2021-05-26 13:20] LABS: CHLORIDE 109 mEq/L (98-107)
[2021-05-26 13:27] LABS: ETHANOL BLOOD < 10 mg/dL
[2021-05-26 16:06] LABS: CLARITY URINE CLEAR (CLEAR); COLOR URINE YELLOW (YELLOW); KETONES URINE NEGATIVE (NEGATIVE); LEUKOCYTE ESTERASE URINE NEGATIVE (NEGATIVE); NITRITE URINE NEGATIVE (NEGATIVE); OCCULT BLOOD URINE NEGATIVE (NEGATIVE); PROTEIN URINE NEGATIVE (NEGATIVE); SPECIFIC GRAVITY URINE 1.037 (1.005-1.030); UROBILINOGEN URINE 0.2 E.U./dL (0.2-1.0)
[2021-05-26 16:15] LABS: *AMPHETAMINES SCREEN URINE NEGATIVE (NEGATIVE); *BARBITURATES SCREEN URINE NEGATIVE (NEGATIVE); *BENZODIAZEPINES SCREEN URINE NEGATIVE (NEGATIVE); *COCAINE SCREEN URINE NEGATIVE (NEGATIVE)
[2021-05-26 16:16] LABS: CANNABINOID URINE SCREEN NEGATIVE (NEGATIVE); METHADONE URINE SCREEN NEGATIVE (NEGATIVE); OPIATES URINE SCREEN PRESUMTIVE POSITIVE (NEGATIVE); PHENCYCLIDINE URINE SCREEN NEGATIVE (NEGATIVE)
[2021-05-26] MEDS ORDERED: SODIUM CHLORIDE 0.9% 1,000 ML IV ONE (18:15)
[2021-05-26 23:40] VITALS: BP 180/60
[2021-05-27] MEDS ORDERED: ONDANSETRON HCL 4MG/2ML INJ IV PRN (00:15)
[2021-05-27] MEDS: CLONIDINE 0.1MG TABLET PO PRN ×2 (00:25→09:51)
[2021-05-27] MEDS: ACETAMINOPHEN 325MG TABLET PO PRN (01:23)
[2021-05-27] MEDS: LORAZEPAM 1MG TABLET PO PRN (01:24)
[2021-05-27 03:55] VITALS: BP 114/42
[2021-05-27 06:29] LABS: CHLORIDE 108 mEq/L (98-107)
[2021-05-27 06:37] LABS: LDL CHOLESTEROL 65 mg/dL (5-100)
[2021-05-27 06:46] LABS: HDL CHOLESTEROL 30 mg/dL (40-59)
[2021-05-27 08:00] VITALS: BP 163/66
[2021-05-27 08:27] LABS: BASOPHILS % 0.6 % (0.0-2.0); EOSINOPHILS % 1.9 % (0.0-5.0); HEMATOCRIT. 27.4 % (36.0-48.0); LYMPHOCYTES % 27.6 % (20.0-50.0); MEAN CORPUSCULAR HEMOGLOBIN 30.8 pg (28.0-32.0); MEAN CORPUSCULAR VOLUME 93.2 fL (81.0-99.0); MEAN PLATELET VOLUME 8.5 fl (7.4-10.4); MONOCYTES % 12.4 % (2.0-8.0); NEUTROPHILS % 57.5 % (40.0-76.0); PLATELET 314 x1000/uL (130-400); RED BLOOD CELL COUNT 2.94 mill/uL (4.2-5.4); RED CELL DISTRIBUTION WIDTH 16.2 % (11.6-14.6)
[2021-05-27] MEDS ORDERED: AMLODIPINE 10MG TABLET PO SCH (09:00)
[2021-05-27] MEDS: ASPIRIN 81MG TABLET PO SCH (09:42)
[2021-05-27] MEDS: GUAIFENESIN 600MG ER TABLET PO SCH ×2 (09:42→20:28)
[2021-05-27] MEDS: ENOXAPARIN 40MG/0.4ML SYR SUBCUT SCH (09:43)
[2021-05-27] MEDS: LISINOPRIL 20MG TABLET PO SCH ×2 (09:50→20:28)
[2021-05-27 12:00] VITALS: BP 127/53
[2021-05-27] MEDS ORDERED: LORAZEPAM 2MG/ML CPJ IV NR (12:00)
[2021-05-27 16:00] VITALS: BP 140/68
[2021-05-27 20:00] VITALS: BP 135/57
[2021-05-27] MEDS ORDERED: IPRATROPIUM/ALBUTEROL 0.5-3(2.5)MG/3ML NEB HHN PRN (20:15)
[2021-05-27] MEDS: ATORVASTATIN CALCIUM 40MG TABLET PO SCH (20:28)
[2021-05-28] VITALS: BP 121/58
[2021-05-28 04:00] VITALS: BP 146/61
[2021-05-28] MEDS: LORAZEPAM 1MG TABLET PO PRN (05:10)
[2021-05-28 08:00] VITALS: BP 135/60
[2021-05-28 08:26] LABS: BASOPHILS % 1.2 % (0.0-2.0); EOSINOPHILS % 2.3 % (0.0-5.0); HEMATOCRIT. 28.8 % (36.0-48.0); HEMOGLOBIN. 9.5 g/dL (12.0-16.0); LYMPHOCYTES % 23.6 % (20.0-50.0); MEAN CORPUSCULAR HEMOGLOBIN 30.9 pg (28.0-32.0); MEAN CORPUSCULAR VOLUME 93.7 fL (81.0-99.0); MEAN PLATELET VOLUME 8.3 fl (7.4-10.4); MONOCYTES % 12.7 % (2.0-8.0); NEUTROPHILS % 60.2 % (40.0-76.0); PLATELET 304 x1000/uL (130-400); RED BLOOD CELL COUNT 3.07 mill/uL (4.2-5.4); RED CELL DISTRIBUTION WIDTH 16.3 % (11.6-14.6)
[2021-05-28] MEDS: LISINOPRIL 20MG TABLET PO SCH ×2 (09:13→20:40)
[2021-05-28] MEDS: ASPIRIN 81MG TABLET PO SCH (09:13)
[2021-05-28] MEDS: GUAIFENESIN 600MG ER TABLET PO SCH ×2 (09:13→20:40)
[2021-05-28] MEDS: ENOXAPARIN 40MG/0.4ML SYR SUBCUT SCH (09:13)
[2021-05-28 12:00] VITALS: BP 133/52
[2021-05-28 16:00] VITALS: BP 129/54
[2021-05-28 20:00] VITALS: BP 119/64
[2021-05-28] MEDS: ATORVASTATIN CALCIUM 40MG TABLET PO SCH (20:40)
[2021-05-29] VITALS (7 sets, daily range): BP systolic 110–170; BP diastolic 43–66
[2021-05-29] MEDS: ACETAMINOPHEN 325MG TABLET PO PRN (03:17)
[2021-05-29] MEDS: ASPIRIN 81MG TABLET PO SCH (08:59)
[2021-05-29] MEDS: ENOXAPARIN 40MG/0.4ML SYR SUBCUT SCH (08:59)
[2021-05-29] MEDS: LISINOPRIL 20MG TABLET PO SCH ×2 (08:59→20:54)
[2021-05-29] MEDS: GUAIFENESIN 600MG ER TABLET PO SCH ×2 (08:59→20:54)
[2021-05-29] MEDS ORDERED: FLUTICASONE/VILANTEROL 200-25 BLST.W.DEV ORI SCH (11:30)
[2021-05-29] MEDS: PREDNISONE 20MG TABLET PO SCH ×2 (12:19→17:45)
[2021-05-29] MEDS ORDERED: VISCOUS LIDOCAINE 2% 15 ML UDC MM PRN (14:00)
[2021-05-29] MEDS: ALBUTEROL (0.083%) 2.5MG/3ML NEB HHN SCH ×2 (14:01→22:28)
[2021-05-29] MEDS: CLONIDINE 0.1MG TABLET PO PRN (16:11)
[2021-05-29] MEDS: ATORVASTATIN CALCIUM 40MG TABLET PO SCH (20:54)
[2021-05-29] MEDS: BUDESONIDE 0.5MG/2ML NEB HHN SCH (22:29)
[2021-05-30] VITALS: BP 145/53
[2021-05-30 08:00] VITALS: BP 139/64
[2021-05-30] MEDS: BUDESONIDE 0.5MG/2ML NEB HHN SCH ×2 (08:16→22:02)
[2021-05-30] MEDS: ALBUTEROL (0.083%) 2.5MG/3ML NEB HHN SCH ×3 (08:16→22:02)
[2021-05-30] MEDS: LISINOPRIL 20MG TABLET PO SCH ×2 (09:09→21:28)
[2021-05-30] MEDS: GUAIFENESIN 600MG ER TABLET PO SCH ×2 (09:09→21:29)
[2021-05-30] MEDS: PREDNISONE 20MG TABLET PO SCH ×2 (09:10→17:32)
[2021-05-30] MEDS: ENOXAPARIN 40MG/0.4ML SYR SUBCUT SCH (09:10)
[2021-05-30] MEDS: ASPIRIN 81MG TABLET PO SCH (09:10)
[2021-05-30 12:00] VITALS: BP 141/61
[2021-05-30] MEDS ORDERED: CLOPIDOGREL 75MG TABLET PO SCH (14:30)
[2021-05-30] MEDS: CLONIDINE 0.1MG TABLET PO PRN (15:50)
[2021-05-30] MEDS: ACETAMINOPHEN 325MG TABLET PO PRN (15:50)
[2021-05-30 16:00] VITALS: BP 165/61
[2021-05-30 17:00] VITALS: BP 145/52
[2021-05-30] MEDS ORDERED: LOPERAMIDE HCL 2MG CAPSULE PO SCH (20:00)
[2021-05-30] MEDS: ATORVASTATIN CALCIUM 40MG TABLET PO SCH (21:29)
[2021-05-30 22:04] VITALS: BP 144/56
== END 2021-05-30 22:47 | DRG 64 ==
LOC: ER 12:43 → 8WST 14:22 → EDBEDREQ 14:28 → ENRESERV 21:28
PROVIDERS: ADMIT Internal Medicine; ATTEND Internal Medicine
DX: I63.9 Cerebral infarction, unspecified (principal); E43 Unspecified severe protein-calorie malnutrition; N17.0 Acute kidney failure with tubular necrosis; D64.9 Anemia, unspecified; E87.8 Other disorders of electrolyte and fluid balance, not elsewhere classified; I08.3 Combined rheumatic disorders of mitral, aortic and tricuspid valves; I12.9 Hypertensive chronic kidney disease with stage 1 through stage 4 chronic kidney disease, or unspecified chronic kidney disease; N18.2 Chronic kidney disease, stage 2 (mild); I27.20 Pulmonary hypertension, unspecified; Z20.822 Contact with and (suspected) exposure to COVID-19; J44.9 Chronic obstructive pulmonary disease, unspecified; R29.810 Facial weakness; Z87.891 Personal history of nicotine dependence; Z79.899 Other long term (current) drug therapy; Z68.29 Body mass index [BMI] 29.0-29.9, adult
CPT/HCPCS: 36415; 70496; 70498; 70551; 71045; 80048; 80053; 80061; 80305; 80320; 81003; 84484; 85025; 87426; 93005; 93306; 93970; 94640; 97162; 97166; 97530; 99291; J1650; J2060; J7512; J7626; Q9967; G0480

== ENCOUNTER 2021-05-30 22:35 | Inpatient (IN) | payer MEDICARE, MEDICAID ==
[~2021-05-30] VITALS: Ht 167.6 cm; Wt 82.5 kg
[2021-05-30 22:35] VITALS: BP 102/60
[~2021-05-30 22:35] MED LIST changes: -ASPI-1497 PO
[2021-05-30 22:45] VITALS: BP 102/60
[2021-05-30] MEDS ORDERED: CLONIDINE 0.1MG TABLET PO PRN (23:00)
[2021-05-30] MEDS ORDERED: ONDANSETRON HCL 4MG/2ML INJ IV PRN (23:00)
[2021-05-30] MEDS ORDERED: VISCOUS LIDOCAINE 2% 15 ML UDC MM PRN (23:00)
[2021-05-31] MEDS ORDERED: ALBUTEROL (0.083%) 2.5MG/3ML NEB HHN SCH
[2021-05-31] MEDS: ALBUTEROL (0.083%) 2.5MG/3ML NEB HHN SCH ×4 (02:07→20:25)
[2021-05-31 07:23] LABS: CHLORIDE 108 mEq/L (98-107)
[2021-05-31 07:44] LABS: BASOPHILS % 0.8 % (0.0-2.0); HEMATOCRIT. 28.8 % (36.0-48.0); HEMOGLOBIN. 9.6 g/dL (12.0-16.0); LYMPHOCYTES % 26.1 % (20.0-50.0); MEAN CORPUSCULAR HEMOGLOBIN 30.9 pg (28.0-32.0); MEAN CORPUSCULAR VOLUME 92.4 fL (81.0-99.0); MEAN PLATELET VOLUME 8.5 fl (7.4-10.4); MONOCYTES % 11.6 % (2.0-8.0); NEUTROPHILS % 61.5 % (40.0-76.0); PLATELET 274 x1000/uL (130-400); RED BLOOD CELL COUNT 3.12 mill/uL (4.2-5.4)
[2021-05-31 08:00] VITALS: BP 175/52
[2021-05-31] MEDS: LISINOPRIL 20MG TABLET PO SCH ×2 (08:30→20:50)
[2021-05-31] MEDS: ASPIRIN 81MG TABLET PO SCH (08:30)
[2021-05-31] MEDS: PREDNISONE 20MG TABLET PO SCH ×2 (08:30→17:44)
[2021-05-31] MEDS: CLOPIDOGREL 75MG TABLET PO SCH (08:30)
[2021-05-31] MEDS: GUAIFENESIN 600MG ER TABLET PO SCH ×2 (08:30→20:49)
[2021-05-31] MEDS: ENOXAPARIN 40MG/0.4ML SYR SUBCUT SCH (08:31)
[2021-05-31 09:30] VITALS: BP 157/42
[2021-05-31] MEDS: BUDESONIDE 0.5MG/2ML NEB HHN SCH ×2 (10:21→20:25)
[2021-05-31] MEDS ORDERED: DOCUSATE SODIUM 100MG CAPSULE PO SCH (14:45)
[2021-05-31] MEDS ORDERED: NA PHOS,M-B/NA PHOS,DI-BA ENEMA 118ML PR PRN (14:45)
[2021-05-31] MEDS ORDERED: LOPERAMIDE HCL 2MG CAPSULE PO PRN ×2 (14:45→17:00)
[2021-05-31 20:00] VITALS: BP 151/47
[2021-05-31] MEDS: ATORVASTATIN CALCIUM 40MG TABLET PO SCH (20:49)
[2021-06-01] MEDS: LORAZEPAM 1MG TABLET PO PRN (00:57)
[2021-06-01] MEDS: ALBUTEROL (0.083%) 2.5MG/3ML NEB HHN SCH ×3 (01:32→21:27)
[2021-06-01] MEDS: BUDESONIDE 0.5MG/2ML NEB HHN SCH ×2 (07:54→21:27)
[2021-06-01 08:00] VITALS: BP 166/58
[2021-06-01] MEDS: ASPIRIN 81MG TABLET PO SCH (10:21)
[2021-06-01] MEDS: ENOXAPARIN 40MG/0.4ML SYR SUBCUT SCH (10:21)
[2021-06-01] MEDS: CLOPIDOGREL 75MG TABLET PO SCH (10:22)
[2021-06-01] MEDS: GUAIFENESIN 600MG ER TABLET PO SCH ×2 (10:22→20:32)
[2021-06-01] MEDS: PREDNISONE 20MG TABLET PO SCH ×2 (10:22→18:22)
[2021-06-01] MEDS: DOCUSATE SODIUM 100MG CAPSULE PO PRN (10:22)
[2021-06-01] MEDS: LISINOPRIL 20MG TABLET PO SCH (10:23)
[2021-06-01] MEDS: BISACODYL 5MG TABLET PO PRN (10:23)
[2021-06-01] MEDS: LACTULOSE 20G/30ML UDC PO PRN ×2 (14:43→14:46)
[2021-06-01 20:00] VITALS: BP 161/62
[2021-06-01] MEDS: ATORVASTATIN CALCIUM 40MG TABLET PO SCH (20:32)
[2021-06-01] MEDS: METOPROLOL TARTRATE 25MG TABLET PO SCH (20:32)
[2021-06-01] MEDS: AMLODIPINE 5MG TABLET PO SCH (20:33)
[2021-06-02] MEDS: ALBUTEROL (0.083%) 2.5MG/3ML NEB HHN SCH ×4 (01:51→21:33)
[2021-06-02 02:12] VITALS: BP 105/45
[2021-06-02 06:23] VITALS: BP 148/51
[2021-06-02] MEDS: BUDESONIDE 0.5MG/2ML NEB HHN SCH ×2 (07:27→21:34)
[2021-06-02 08:00] VITALS: BP 153/34
[2021-06-02] MEDS: ASPIRIN 81MG TABLET PO SCH (08:45)
[2021-06-02] MEDS: BISACODYL 5MG TABLET PO PRN (08:45)
[2021-06-02] MEDS: DOCUSATE SODIUM 100MG CAPSULE PO PRN (08:45)
[2021-06-02] MEDS: GUAIFENESIN 600MG ER TABLET PO SCH ×2 (08:45→20:14)
[2021-06-02] MEDS: PREDNISONE 20MG TABLET PO SCH ×2 (08:45→16:59)
[2021-06-02] MEDS: CLOPIDOGREL 75MG TABLET PO SCH (08:45)
[2021-06-02] MEDS: AMLODIPINE 5MG TABLET PO SCH ×2 (08:45→20:15)
[2021-06-02] MEDS: METOPROLOL TARTRATE 25MG TABLET PO SCH ×2 (08:46→20:15)
[2021-06-02] MEDS: ENOXAPARIN 40MG/0.4ML SYR SUBCUT SCH (08:46)
[2021-06-02 20:00] VITALS: BP 165/64
[2021-06-02] MEDS: ATORVASTATIN CALCIUM 40MG TABLET PO SCH (20:14)
[2021-06-02 21:37] VITALS: BP 151/48
[2021-06-03] MEDS: ALBUTEROL (0.083%) 2.5MG/3ML NEB HHN SCH ×4 (03:04→20:05)
[2021-06-03 08:00] VITALS: BP 138/64
[2021-06-03] MEDS: CLOPIDOGREL 75MG TABLET PO SCH (09:05)
[2021-06-03] MEDS: ASPIRIN 81MG TABLET PO SCH (09:05)
[2021-06-03] MEDS: PREDNISONE 20MG TABLET PO SCH ×2 (09:05→17:13)
[2021-06-03] MEDS: AMLODIPINE 5MG TABLET PO SCH ×2 (09:05→21:04)
[2021-06-03] MEDS: GUAIFENESIN 600MG ER TABLET PO SCH ×2 (09:06→21:03)
[2021-06-03] MEDS: METOPROLOL TARTRATE 25MG TABLET PO SCH ×2 (09:06→21:05)
[2021-06-03] MEDS: ACETAMINOPHEN 325MG TABLET PO PRN (09:13)
[2021-06-03] MEDS: ENOXAPARIN 40MG/0.4ML SYR SUBCUT SCH (09:13)
[2021-06-03] MEDS: BUDESONIDE 0.5MG/2ML NEB HHN SCH (12:20)
[2021-06-03 20:00] VITALS: BP 159/48
[2021-06-03] MEDS: ATORVASTATIN CALCIUM 40MG TABLET PO SCH (21:03)
[2021-06-04] MEDS: ALBUTEROL (0.083%) 2.5MG/3ML NEB HHN SCH ×3 (02:06→14:23)
[2021-06-04 08:00] VITALS: BP 162/57
[2021-06-04] MEDS: METOPROLOL TARTRATE 25MG TABLET PO SCH ×2 (09:30→20:52)
[2021-06-04] MEDS: ASPIRIN 81MG TABLET PO SCH (09:30)
[2021-06-04] MEDS: GUAIFENESIN 600MG ER TABLET PO SCH ×2 (09:31→20:51)
[2021-06-04] MEDS: AMLODIPINE 5MG TABLET PO SCH ×2 (09:31→20:52)
[2021-06-04] MEDS: CLOPIDOGREL 75MG TABLET PO SCH (09:31)
[2021-06-04] MEDS: PREDNISONE 20MG TABLET PO SCH ×2 (09:31→18:44)
[2021-06-04] MEDS: DOCUSATE SODIUM 100MG CAPSULE PO PRN (09:32)
[2021-06-04] MEDS: ENOXAPARIN 40MG/0.4ML SYR SUBCUT SCH (09:32)
[2021-06-04] MEDS: ACETAMINOPHEN 325MG TABLET PO PRN (10:56)
[2021-06-04] MEDS: LORAZEPAM 1MG TABLET PO PRN (15:42)
[2021-06-04 20:00] VITALS: BP 148/44
[2021-06-04] MEDS: ATORVASTATIN CALCIUM 40MG TABLET PO SCH (20:52)
[2021-06-05 08:00] VITALS: BP 166/54
[2021-06-05] MEDS: GUAIFENESIN 600MG ER TABLET PO SCH ×2 (09:00→21:48)
[2021-06-05] MEDS: ASPIRIN 81MG TABLET PO SCH (10:16)
[2021-06-05] MEDS: METOPROLOL TARTRATE 25MG TABLET PO SCH ×2 (10:16→21:50)
[2021-06-05] MEDS: PREDNISONE 20MG TABLET PO SCH ×2 (10:16→17:52)
[2021-06-05] MEDS: CLOPIDOGREL 75MG TABLET PO SCH (10:16)
[2021-06-05] MEDS: AMLODIPINE 5MG TABLET PO SCH ×2 (10:17→21:51)
[2021-06-05] MEDS: ENOXAPARIN 40MG/0.4ML SYR SUBCUT SCH (10:18)
[2021-06-05] MEDS: ACETAMINOPHEN 325MG TABLET PO PRN ×2 (10:38→11:38)
[2021-06-05] MEDS ORDERED: ALBUTEROL (0.083%) 2.5MG/3ML NEB HHN PRN (15:00)
[2021-06-05 20:00] VITALS: BP 162/67
[2021-06-05] MEDS: ATORVASTATIN CALCIUM 40MG TABLET PO SCH (21:48)
[2021-06-06] MEDS: CLONIDINE 0.1MG TABLET PO SCH ×2 (00:28→21:07)
[2021-06-06 04:00] VITALS: BP 139/66
[2021-06-06] MEDS: IPRATROPIUM/ALBUTEROL 0.5-3(2.5)MG/3ML NEB HHN PRN (05:14)
[2021-06-06 08:00] VITALS: BP 144/42
[2021-06-06] MEDS: PREDNISONE 20MG TABLET PO SCH ×2 (08:53→17:47)
[2021-06-06] MEDS: ASPIRIN 81MG TABLET PO SCH (08:53)
[2021-06-06] MEDS: GUAIFENESIN 600MG ER TABLET PO SCH ×2 (08:53→21:06)
[2021-06-06] MEDS: METOPROLOL TARTRATE 25MG TABLET PO SCH ×2 (08:53→21:00)
[2021-06-06] MEDS: CLOPIDOGREL 75MG TABLET PO SCH (08:53)
[2021-06-06] MEDS: AMLODIPINE 5MG TABLET PO SCH ×2 (08:54→21:07)
[2021-06-06] MEDS: ENOXAPARIN 40MG/0.4ML SYR SUBCUT SCH (09:00)
[2021-06-06 10:27] LABS: BASOPHILS % 0.8 % (0.0-2.0); EOSINOPHILS % 0.2 % (0.0-5.0); HEMOGLOBIN. 11.2 g/dL (12.0-16.0); LYMPHOCYTES % 28.2 % (20.0-50.0); MEAN CORPUSCULAR HEMOGLOBIN 30.6 pg (28.0-32.0); MEAN CORPUSCULAR VOLUME 93.2 fL (81.0-99.0); MEAN PLATELET VOLUME 9.1 fl (7.4-10.4); MONOCYTES % 6.2 % (2.0-8.0); NEUTROPHILS % 64.6 % (40.0-76.0); PLATELET 272 x1000/uL (130-400); RED BLOOD CELL COUNT 3.65 mill/uL (4.2-5.4); RED CELL DISTRIBUTION WIDTH 16.9 % (11.6-14.6)
[2021-06-06] MEDS: ACETAMINOPHEN 325MG TABLET PO PRN (14:54)
[2021-06-06] MEDS ORDERED: METHYL SALICYLATE/MENTHOL CREAM 85GM TOP PRN (15:15)
[2021-06-06] MEDS ORDERED: LORAZEPAM 1MG TABLET PO PRN (15:15)
[2021-06-06] MEDS: DOCUSATE SODIUM 100MG CAPSULE PO PRN (18:06)
[2021-06-06 20:00] VITALS: BP 154/59
[2021-06-06] MEDS: ATORVASTATIN CALCIUM 40MG TABLET PO SCH (21:06)
[2021-06-06] MEDS: TRAZODONE HCL 50MG TABLET PO SCH (21:11)
[2021-06-07 08:00] VITALS: BP 133/56
[2021-06-07] MEDS: ASPIRIN 81MG TABLET PO SCH (10:14)
[2021-06-07] MEDS: CLOPIDOGREL 75MG TABLET PO SCH (10:14)
[2021-06-07] MEDS: PREDNISONE 20MG TABLET PO SCH ×2 (10:15→17:16)
[2021-06-07] MEDS: METOPROLOL TARTRATE 25MG TABLET PO SCH ×2 (10:21→21:00)
[2021-06-07] MEDS: AMLODIPINE 5MG TABLET PO SCH ×2 (10:22→21:13)
[2021-06-07] MEDS: ENOXAPARIN 40MG/0.4ML SYR SUBCUT SCH (10:24)
[2021-06-07] MEDS: GUAIFENESIN 600MG ER TABLET PO SCH ×2 (18:52→21:11)
[2021-06-07 20:00] VITALS: BP 153/63
[2021-06-07] MEDS: ATORVASTATIN CALCIUM 40MG TABLET PO SCH (21:13)
[2021-06-07] MEDS: CLONIDINE 0.1MG TABLET PO SCH (21:13)
[2021-06-07] MEDS: TRAZODONE HCL 50MG TABLET PO SCH (21:13)
[2021-06-07] MEDS: IPRATROPIUM/ALBUTEROL 0.5-3(2.5)MG/3ML NEB HHN PRN (21:55)
[2021-06-08] MEDS: ACETAMINOPHEN 325MG TABLET PO PRN ×4 (01:57→16:21)
[2021-06-08 08:00] VITALS: BP 170/49
[2021-06-08] MEDS: PREDNISONE 20MG TABLET PO SCH ×2 (08:34→18:02)
[2021-06-08] MEDS: ASPIRIN 81MG TABLET PO SCH (08:34)
[2021-06-08] MEDS: CLOPIDOGREL 75MG TABLET PO SCH (08:35)
[2021-06-08] MEDS: GUAIFENESIN 600MG ER TABLET PO SCH ×2 (08:35→21:20)
[2021-06-08] MEDS: AMLODIPINE 5MG TABLET PO SCH ×2 (08:35→21:21)
[2021-06-08] MEDS: ENOXAPARIN 40MG/0.4ML SYR SUBCUT SCH (08:38)
[2021-06-08] MEDS: METOPROLOL TARTRATE 25MG TABLET PO SCH ×2 (09:00→21:22)
[2021-06-08 20:00] VITALS: BP 160/82
[2021-06-08] MEDS: CLONIDINE 0.1MG TABLET PO SCH (21:20)
[2021-06-08] MEDS: TRAZODONE HCL 50MG TABLET PO SCH (21:21)
[2021-06-08] MEDS: ATORVASTATIN CALCIUM 40MG TABLET PO SCH (21:22)
[2021-06-09] MEDS: METOPROLOL TARTRATE 25MG TABLET PO SCH (08:52)
[2021-06-09] MEDS: ASPIRIN 81MG TABLET PO SCH (08:52)
[2021-06-09] MEDS: ENOXAPARIN 40MG/0.4ML SYR SUBCUT SCH (08:52)
[2021-06-09] MEDS: AMLODIPINE 5MG TABLET PO SCH (08:53)
[2021-06-09] MEDS: CLOPIDOGREL 75MG TABLET PO SCH (08:53)
[2021-06-09] MEDS: GUAIFENESIN 600MG ER TABLET PO SCH (08:53)
[2021-06-09] MEDS: PREDNISONE 20MG TABLET PO SCH (08:53)
[2021-06-09] MEDS ORDERED: AMLO5TAB88 PO (10:34)
[2021-06-09] MEDS ORDERED: ASPI-1406 MT (10:34)
[2021-06-09] MEDS ORDERED: LISI20TA31 PO (10:34)
[2021-06-09 13:17] VITALS: BP 136/51
[2021-06-09] MEDS: ACETAMINOPHEN 325MG TABLET PO PRN (13:42)
== END 2021-06-09 14:40 | disposition home health service (06) | DRG 56 ==
PROVIDERS: ADMIT Psychiatry & Neurology Neurology; ATTEND Internal Medicine
DX: I69.351 Hemiplegia and hemiparesis following cerebral infarction affecting right dominant side (principal); I63.9 Cerebral infarction, unspecified; F32.A Depression, unspecified; F41.9 Anxiety disorder, unspecified; I10 Essential (primary) hypertension; J44.9 Chronic obstructive pulmonary disease, unspecified; F01.50 Vascular dementia, unspecified severity, without behavioral disturbance, psychotic disturbance, mood disturbance, and anxiety; D64.9 Anemia, unspecified; E87.8 Other disorders of electrolyte and fluid balance, not elsewhere classified; I35.0 Nonrheumatic aortic (valve) stenosis; Z99.81 Dependence on supplemental oxygen; Z87.891 Personal history of nicotine dependence; N28.9 Disorder of kidney and ureter, unspecified; R26.89 Other abnormalities of gait and mobility; Z87.09 Personal history of other diseases of the respiratory system
CPT/HCPCS: 36415; 80048; 85025; 92523; 92610; 93970; 94640; 97110; 97112; 97116; 97162; 97166; 97530; 97535; J1650; J7512; J7626

== ENCOUNTER 2021-09-26 02:36 | Inpatient (IN) | payer MEDICARE, MEDICAID ==
[~2021-09-26] VITALS: Ht 165.1 cm; Wt 88.5 kg
[2021-09-26] VITALS (8 sets, daily range): BP systolic 133–164; BP diastolic 44–101
[~2021-09-26 02:36] MED LIST changes: +AMLO5TAB88 PO; +ASPI-1406 MT; -METO25TA6 PO; -P20 PO
[2021-09-26] MEDS ORDERED: METHYLPREDNISOLONE SOD SUCC 125 MG/2 ML VIAL IV STA (02:40)
[2021-09-26] MEDS ORDERED: IPRATROPIUM BROMIDE (0.02%) 0.5MG/2.5ML NEB HHN STA (02:40)
[2021-09-26] MEDS ORDERED: MAGNESIUM 2 G PREMIX 50 ML IV ONE (02:45)
[2021-09-26] MEDS ORDERED: AZITHROMYCIN 500MG/250ML 250 ML IV ONE (03:15)
[2021-09-26] MEDS ORDERED: CEFTRIAXONE 1 G PREMIX 50 ML IV ONE (03:15)
[2021-09-26] MEDS: ALBUTEROL (0.083%) 2.5MG/3ML NEB HHN SCH ×3 (03:41→04:44)
[2021-09-26 04:35] LABS: BG CARBOXYHEMOGLOBIN 0.3 % (0.5-1.5); BG DEOXYHEMOGLOBIN 1.8 % (0.0-5.0); BG FRACTION INSPIRED OXYGEN 50; BG HCO3 ACT 22.3 mmol/L (22.0-26.0); BG METHEMOGLOBIN 0.3 % (0.0-1.5); BG OXYGEN SATURATION 98.2 % (92.0-98.5); BG OXYHEMOGLOBIN 97.6 % (94.0-97.0); BG PCO2 45.6 mmHg (35.0-45.0); BG PH 7.308 (7.350-7.450); BG SAMPLE SITE ALINE; BG TOTAL HEMOGLOBIN 12.1 g/dL (12.0-18.0); BG VENT MODE MASK - BIPAP
[2021-09-26 04:59] LABS: CHLORIDE 109 mEq/L (98-107)
[2021-09-26 06:28] LABS: BASOPHILS % 0.8 % (0.0-2.0); EOSINOPHILS % 0.7 % (0.0-5.0); HEMATOCRIT. 36.6 % (36.0-48.0); HEMOGLOBIN. 11.9 g/dL (12.0-16.0); LYMPHOCYTES % 7.2 % (20.0-50.0); MEAN CORPUSCULAR HEMOGLOBIN 29.9 pg (28.0-32.0); MEAN CORPUSCULAR VOLUME 92.3 fL (81.0-99.0); MEAN PLATELET VOLUME 10.1 fl (7.4-10.4); MONOCYTES % 1.7 % (2.0-8.0); NEUTROPHILS % 89.6 % (40.0-76.0); PLATELET 185 x1000/uL (130-400); RED BLOOD CELL COUNT 3.97 mill/uL (4.2-5.4)
[2021-09-26] MEDS ORDERED: FUROSEMIDE 20MG/2ML VIAL IVP SCH (10:00)
[2021-09-26] MEDS ORDERED: ONDANSETRON 4MG/5ML UDC PO SCH (10:00)
[2021-09-26] MEDS ORDERED: IPRATROPIUM/ALBUTEROL 0.5-3(2.5)MG/3ML NEB HHN PRN (10:15)
[2021-09-26] MEDS: METHYLPREDNISOLONE SOD SUCC 40 MG/ML VIAL IV SCH ×2 (11:34→18:52)
[2021-09-26] MEDS: AMLODIPINE 10MG TABLET PO SCH (11:34)
[2021-09-26] MEDS: IPRATROPIUM/ALBUTEROL 0.5-3(2.5)MG/3ML NEB HHN SCH ×3 (11:48→20:44)
[2021-09-26] MEDS: ACETAMINOPHEN 325MG TABLET PO PRN (16:41)
[2021-09-26] MEDS: FAMOTIDINE 20MG TABLET PO SCH (20:53)
[2021-09-26] MEDS ORDERED: NALOXONE HCL 0.4MG/ML VIAL IV PRN (22:15)
[2021-09-26] MEDS ORDERED: ZOLPIDEM TARTRATE 5MG TABLET PO PRN (22:15)
[2021-09-27] VITALS (12 sets, daily range): BP systolic 123–183; BP diastolic 61–86
[2021-09-27] MEDS: IPRATROPIUM/ALBUTEROL 0.5-3(2.5)MG/3ML NEB HHN SCH ×6 (00:27→20:25)
[2021-09-27] MEDS: METHYLPREDNISOLONE SOD SUCC 40 MG/ML VIAL IV SCH ×3 (01:04→20:04)
[2021-09-27] MEDS: HYDROCODONE/ACETAMINOPHEN 5/325MG TABLET PO PRN ×2 (01:04→09:43)
[2021-09-27] MEDS: AMLODIPINE 10MG TABLET PO SCH (09:08)
[2021-09-27] MEDS: CLONIDINE 0.1MG TABLET PO SCH ×2 (16:13→21:09)
[2021-09-27] MEDS: SILDENAFIL CITRATE 20MG TABLET PO SCH ×2 (16:13→21:09)
[2021-09-27] MEDS: LISINOPRIL 20MG TABLET PO SCH (18:22)
[2021-09-27] MEDS: GUAIFENESIN 600MG ER TABLET PO SCH (20:04)
[2021-09-27] MEDS: FAMOTIDINE 20MG TABLET PO SCH (20:04)
[2021-09-28] VITALS (12 sets, daily range): BP systolic 120–157; BP diastolic 46–75
[2021-09-28] MEDS: IPRATROPIUM/ALBUTEROL 0.5-3(2.5)MG/3ML NEB HHN SCH ×6 (00:05→21:10)
[2021-09-28] MEDS: SILDENAFIL CITRATE 20MG TABLET PO SCH ×3 (06:04→21:35)
[2021-09-28] MEDS: CLONIDINE 0.1MG TABLET PO SCH ×3 (06:04→21:35)
[2021-09-28] MEDS: ASPIRIN 81MG EC TABLET PO SCH (08:12)
[2021-09-28] MEDS: METHYLPREDNISOLONE SOD SUCC 40 MG/ML VIAL IV SCH (08:12)
[2021-09-28] MEDS: GUAIFENESIN 600MG ER TABLET PO SCH ×2 (08:12→20:04)
[2021-09-28] MEDS: AMLODIPINE 10MG TABLET PO SCH (08:13)
[2021-09-28] MEDS: LISINOPRIL 20MG TABLET PO SCH ×2 (08:13→18:05)
[2021-09-28 09:05] LABS: BASOPHILS % 0.7 % (0.0-2.0); EOSINOPHILS % 0.1 % (0.0-5.0); HEMATOCRIT. 31.6 % (36.0-48.0); HEMOGLOBIN. 10.4 g/dL (12.0-16.0); LYMPHOCYTES % 10.1 % (20.0-50.0); MEAN CORPUSCULAR VOLUME 90.8 fL (81.0-99.0); MEAN PLATELET VOLUME 9.8 fl (7.4-10.4); MONOCYTES % 3.5 % (2.0-8.0); NEUTROPHILS % 85.6 % (40.0-76.0); PLATELET 191 x1000/uL (130-400); RED BLOOD CELL COUNT 3.48 mill/uL (4.2-5.4); RED CELL DISTRIBUTION WIDTH 16.5 % (11.6-14.6)
[2021-09-28] MEDS: ENOXAPARIN 40MG/0.4ML SYR SUBCUT SCH (10:29)
[2021-09-28] MEDS ORDERED: SODIUM CHLORIDE 45ML SPRAY NS PRN (15:00)
[2021-09-28] MEDS ORDERED: SODIUM CHLORIDE 0.9% 500 ML IV ONE (16:00)
[2021-09-28] MEDS: FAMOTIDINE 20MG TABLET PO SCH (20:04)
[2021-09-29] VITALS (12 sets, daily range): BP systolic 118–156; BP diastolic 51–80
[2021-09-29] MEDS: IPRATROPIUM/ALBUTEROL 0.5-3(2.5)MG/3ML NEB HHN SCH ×6 (00:38→21:21)
[2021-09-29] MEDS: SILDENAFIL CITRATE 20MG TABLET PO SCH ×3 (05:08→21:00)
[2021-09-29] MEDS: CLONIDINE 0.1MG TABLET PO SCH ×3 (05:08→21:00)
[2021-09-29 06:20] LABS: BASOPHILS % 0.3 % (0.0-2.0); EOSINOPHILS % 0.2 % (0.0-5.0); HEMATOCRIT. 31.5 % (36.0-48.0); HEMOGLOBIN. 10.3 g/dL (12.0-16.0); LYMPHOCYTES % 24.9 % (20.0-50.0); MEAN CORPUSCULAR VOLUME 91.6 fL (81.0-99.0); MEAN PLATELET VOLUME 9.7 fl (7.4-10.4); MONOCYTES % 8.3 % (2.0-8.0); NEUTROPHILS % 66.3 % (40.0-76.0); PLATELET 171 x1000/uL (130-400); RED BLOOD CELL COUNT 3.44 mill/uL (4.2-5.4); RED CELL DISTRIBUTION WIDTH 17.2 % (11.6-14.6)
[2021-09-29] MEDS: ENOXAPARIN 40MG/0.4ML SYR SUBCUT SCH (08:39)
[2021-09-29] MEDS: LISINOPRIL 20MG TABLET PO SCH ×2 (08:40→16:34)
[2021-09-29] MEDS: GUAIFENESIN 600MG ER TABLET PO SCH ×2 (08:40→20:55)
[2021-09-29] MEDS: ASPIRIN 81MG EC TABLET PO SCH (08:40)
[2021-09-29] MEDS: METHYLPREDNISOLONE SOD SUCC 40 MG/ML VIAL IV SCH (08:40)
[2021-09-29] MEDS: AMLODIPINE 10MG TABLET PO SCH (08:40)
[2021-09-29] MEDS: FAMOTIDINE 20MG TABLET PO SCH (20:55)
[2021-09-30] VITALS (11 sets, daily range): BP systolic 130–149; BP diastolic 53–102
[2021-09-30] MEDS: IPRATROPIUM/ALBUTEROL 0.5-3(2.5)MG/3ML NEB HHN SCH ×4 (01:13→12:18)
[2021-09-30] MEDS: SILDENAFIL CITRATE 20MG TABLET PO SCH ×2 (05:43→13:41)
[2021-09-30] MEDS: CLONIDINE 0.1MG TABLET PO SCH ×2 (05:43→13:41)
[2021-09-30] MEDS: ASPIRIN 81MG EC TABLET PO SCH (09:18)
[2021-09-30] MEDS: AMLODIPINE 10MG TABLET PO SCH (09:18)
[2021-09-30] MEDS: LISINOPRIL 20MG TABLET PO SCH (09:18)
[2021-09-30] MEDS: GUAIFENESIN 600MG ER TABLET PO SCH (09:18)
[2021-09-30] MEDS: ENOXAPARIN 40MG/0.4ML SYR SUBCUT SCH (09:27)
[2021-09-30] MEDS: METHYLPREDNISOLONE SOD SUCC 40 MG/ML VIAL IV SCH (09:28)
[2021-09-30] MEDS: ACETAMINOPHEN 325MG TABLET PO PRN (09:32)
[2021-09-30] MEDS ORDERED: MED4 MT (09:46)
[2021-09-30] MEDS ORDERED: SODI45SP7 NS (09:46)
[2021-09-30] MEDS ORDERED: AMLO10TA80 PO (09:46)
[2021-09-30] MEDS ORDERED: FAMO20TA8 PO (09:46)
[2021-09-30] MEDS ORDERED: CLON0.1T PO (09:46)
== END 2021-09-30 16:20 | disposition home health service (06) | DRG 189 ==
LOC: ER 02:36 → 5EST 04:06 → EDBEDREQ 04:27 → EDBEDREQTM 04:27 → EDBEDREQSVC 08:20 → EDBEDREQTM 08:21 → ENRESERV 08:25
PROVIDERS: ADMIT Internal Medicine; ATTEND Internal Medicine
PROC: 5A09357 Assistance with Respiratory Ventilation, Less than 24 Consecutive Hours, Continuous Positive Airway Pressure (ICD-10-PCS; principal; 2021-09-26)
DX: J96.21 Acute and chronic respiratory failure with hypoxia (principal); J18.9 Pneumonia, unspecified organism; N17.9 Acute kidney failure, unspecified; I50.22 Chronic systolic (congestive) heart failure; J96.22 Acute and chronic respiratory failure with hypercapnia; J43.9 Emphysema, unspecified; I11.0 Hypertensive heart disease with heart failure; I35.0 Nonrheumatic aortic (valve) stenosis; I27.20 Pulmonary hypertension, unspecified; D64.9 Anemia, unspecified; E87.8 Other disorders of electrolyte and fluid balance, not elsewhere classified; Z86.73 Personal history of transient ischemic attack (TIA), and cerebral infarction without residual deficits; Z87.891 Personal history of nicotine dependence; Z79.82 Long term (current) use of aspirin; Z20.822 Contact with and (suspected) exposure to COVID-19
CPT/HCPCS: 36415; 36600; 71045; 80048; 80053; 82375; 82805; 83605; 83880; 84484; 85025; 85379; 87426; 93005; 93306; 94640; 94660; 99291; C9803; J0456; J0696; J1650; J1940; J2920; J2930; J3475

== ENCOUNTER 2021-11-09 05:21 | Inpatient (IN) | payer MEDICARE, MEDICAID ==
[~2021-11-09] VITALS: Ht 167.6 cm; Wt 84.8 kg
[~2021-11-09 05:21] MED LIST changes: +AMLO10TA80 PO; -AMLO2.5T45 PO; -AMLO5TAB88 PO; +CLON0.1T PO; +FAMO20TA8 PO; +MED4 MT; +SODI45SP7 NS
[2021-11-09] MEDS ORDERED: IPRATROPIUM BROMIDE (0.02%) 0.5MG/2.5ML NEB HHN STA (05:28)
[2021-11-09] MEDS ORDERED: METHYLPREDNISOLONE SOD SUCC 125 MG/2 ML VIAL IV STA (05:28)
[2021-11-09] MEDS ORDERED: MAGNESIUM 2 G PREMIX 50 ML IV ONE (05:30)
[2021-11-09] MEDS ORDERED: ALBUTEROL (0.083%) 2.5MG/3ML NEB HHN SCH (05:30)
[2021-11-09 05:52] LABS: EOSINOPHILS % 0.8 % (0.0-5.0); HEMATOCRIT. 35.5 % (36.0-48.0); HEMOGLOBIN. 11.3 g/dL (12.0-16.0); LYMPHOCYTES % 28.1 % (20.0-50.0); MEAN CORPUSCULAR HEMOGLOBIN 29.8 pg (28.0-32.0); MEAN CORPUSCULAR VOLUME 93.3 fL (81.0-99.0); MEAN PLATELET VOLUME 9.7 fl (7.4-10.4); MONOCYTES % 5.5 % (2.0-8.0); NEUTROPHILS % 64.6 % (40.0-76.0); PLATELET 209 x1000/uL (130-400); RED CELL DISTRIBUTION WIDTH 17.1 % (11.6-14.6)
[2021-11-09 06:00] LABS: CHLORIDE 108 mEq/L (98-107)
[2021-11-09 06:10] LABS: ETHANOL BLOOD < 10 mg/dL
[2021-11-09] MEDS ORDERED: FUROSEMIDE 40MG/4ML VIAL IVP NR (06:45)
[2021-11-09] MEDS ORDERED: ASPIRIN 81MG EC TABLET PO NR (06:45)
[2021-11-09 07:30] LABS: CHLORIDE 108 mEq/L (98-107)
[2021-11-09] MEDS ORDERED: IPRATROPIUM/ALBUTEROL 0.5-3(2.5)MG/3ML NEB HHN PRN ×2 (15:30→20:45)
[2021-11-09] MEDS: IPRATROPIUM/ALBUTEROL 0.5-3(2.5)MG/3ML NEB HHN SCH ×2 (15:41→20:58)
[2021-11-09 17:00] VITALS: BP 150/60
[2021-11-09] MEDS: METHYLPREDNISOLONE SOD SUCC 40 MG/ML VIAL IV SCH (17:41)
[2021-11-09] MEDS ORDERED: ACETAMINOPHEN 325MG TABLET PO PRN ×2 (18:15→20:45)
[2021-11-09] MEDS ORDERED: CLONIDINE 0.1MG TABLET PO PRN (18:15)
[2021-11-09 20:00] VITALS: BP 174/60
[2021-11-09] MEDS ORDERED: GUAIFENESIN 200MG/10ML SUGAR FREE UDC PO PRN (20:45)
[2021-11-09] MEDS ORDERED: ONDANSETRON HCL 4MG/2ML INJ IV PRN (20:45)
[2021-11-09] MEDS ORDERED: ZOLPIDEM TARTRATE 5MG TABLET PO PRN (20:45)
[2021-11-09] MEDS ORDERED: DIPHENHYDRAMINE 50MG/ML VIAL IV PRN (20:45)
[2021-11-09] MEDS: FAMOTIDINE 20MG TABLET PO SCH (20:57)
[2021-11-09] MEDS: CLONIDINE 0.1MG TABLET PO PRN (20:57)
[2021-11-09] MEDS: GUAIFENESIN 600MG ER TABLET PO SCH (20:57)
[2021-11-09] MEDS: ACETAMINOPHEN 325MG TABLET PO PRN (20:58)
[2021-11-09] MEDS: SODIUM CHLORIDE 0.9% INJ 3ML FLUSH IVF SCH (22:00)
[2021-11-10] VITALS: BP 134/54
[2021-11-10] MEDS: METHYLPREDNISOLONE SOD SUCC 40 MG/ML VIAL IV SCH ×4 (00:04→21:59)
[2021-11-10] MEDS: IPRATROPIUM/ALBUTEROL 0.5-3(2.5)MG/3ML NEB HHN SCH ×6 (00:37→21:11)
[2021-11-10] MEDS: ACETAMINOPHEN 325MG TABLET PO PRN (02:09)
[2021-11-10 04:00] VITALS: BP 163/62
[2021-11-10] MEDS: SODIUM CHLORIDE 0.9% INJ 3ML FLUSH IVF SCH ×3 (06:00→22:00)
[2021-11-10 08:00] VITALS: BP 162/59
[2021-11-10] MEDS: LOVENOX SUBCUT SCH (08:59)
[2021-11-10] MEDS: GUAIFENESIN 600MG ER TABLET PO SCH ×2 (08:59→22:00)
[2021-11-10] MEDS: CLONIDINE 0.1MG TABLET PO PRN ×2 (09:00→17:43)
[2021-11-10 12:00] VITALS: BP 149/52
[2021-11-10 16:00] VITALS: BP 168/58
[2021-11-10] MEDS ORDERED: METHYL SALICYLATE/MENTHOL CREAM 85GM TOP PRN (18:15)
[2021-11-10 20:00] VITALS: BP 124/76
[2021-11-10] MEDS: FAMOTIDINE 20MG TABLET PO SCH (21:59)
[2021-11-11] VITALS: BP 156/72
[2021-11-11] MEDS: IPRATROPIUM/ALBUTEROL 0.5-3(2.5)MG/3ML NEB HHN SCH ×5 (00:50→16:24)
[2021-11-11 04:00] VITALS: BP 150/64
[2021-11-11] MEDS: METHYLPREDNISOLONE SOD SUCC 40 MG/ML VIAL IV SCH (05:41)
[2021-11-11] MEDS: SODIUM CHLORIDE 0.9% INJ 3ML FLUSH IVF SCH (05:42)
[2021-11-11] MEDS: LOVENOX SUBCUT SCH (09:25)
[2021-11-11] MEDS: GUAIFENESIN 600MG ER TABLET PO SCH (09:25)
[2021-11-11 12:00] VITALS: BP 182/57
[2021-11-11 16:00] VITALS: BP 183/75
[2021-11-11 16:46] VITALS: BP 153/55
== END 2021-11-11 17:25 | disposition home or self-care (01) | DRG 189 ==
LOC: ER 05:41 → 7WST 09:18 → EDBEDREQ 09:27 → EDBEDREQTM 09:27 → CANRESERV 12:28 → ENRESERV 12:28 → EDBEDREQSVC 13:14 → ENRESERV 15:30
PROVIDERS: ADMIT Internal Medicine; ATTEND Internal Medicine
PROC: 5A09357 Assistance with Respiratory Ventilation, Less than 24 Consecutive Hours, Continuous Positive Airway Pressure (ICD-10-PCS; principal; 2021-11-09)
DX: J96.01 Acute respiratory failure with hypoxia (principal); J44.1 Chronic obstructive pulmonary disease with (acute) exacerbation; I13.0 Hypertensive heart and chronic kidney disease with heart failure and stage 1 through stage 4 chronic kidney disease, or unspecified chronic kidney disease; I50.20 Unspecified systolic (congestive) heart failure; N18.9 Chronic kidney disease, unspecified; E66.01 Morbid (severe) obesity due to excess calories; I27.20 Pulmonary hypertension, unspecified; D64.9 Anemia, unspecified; I35.0 Nonrheumatic aortic (valve) stenosis; Z20.822 Contact with and (suspected) exposure to COVID-19; Z68.30 Body mass index [BMI] 30.0-30.9, adult; Z79.899 Other long term (current) drug therapy; Z99.81 Dependence on supplemental oxygen; Z87.891 Personal history of nicotine dependence; Z86.73 Personal history of transient ischemic attack (TIA), and cerebral infarction without residual deficits
CPT/HCPCS: 36415; 71045; 80053; 80320; 83605; 83880; 84484; 85025; 87426; 87804; 93005; 94640; 94660; 99291; C9803; J1650; J1940; J2920; J2930; J3475; G0480

== ENCOUNTER 2023-11-02 04:26 | Inpatient (IN) | payer MEDICARE, MEDICAID ==
[~2023-11-02] VITALS: Ht 160 cm; Wt 82.6 kg
[2023-11-02] VITALS (18 sets, daily range): BP systolic 131–152; BP diastolic 56–135; PULSE 63–75; RESP 14–26; TEMP 97.8–98.4
[~2023-11-02 04:26] MED LIST changes: +AZIT250T MT; +BUDE90AE INH; -CLON0.1T PO; +FURO-151 MT; +HYDR50TA39 PO; +IPRA3AMP9 HHN; -LISI20TA31 PO; +LOSA100T33 MT; -MED4 MT; +P20 MT
[2023-11-02] MEDS: ALBUTEROL (0.083%) 2.5MG/3ML NEB HHN SCH (04:42)
[2023-11-02] MEDS: IPRATROPIUM BROMIDE (0.02%) 0.5MG/2.5ML NEB HHN STA (04:42)
[2023-11-02] MEDS: MAGNESIUM 2 G PREMIX 50 ML IV ONE (04:55)
[2023-11-02] MEDS: METHYLPREDNISOLONE SOD SUCC 125MG/2ML (ACT-O-VIAL) IV STA (04:55)
[2023-11-02] MEDS: ONDANSETRON HCL 4MG/2ML INJ IV STA (04:55)
[2023-11-02 05:32] LABS: BASOPHILS % 1.3 % (0.0-2.0); EOSINOPHILS % 1.4 % (0.0-5.0); HEMATOCRIT. 30.3 % (36.0-48.0); HEMOGLOBIN. 9.5 g/dL (12.0-16.0); LYMPHOCYTES % 27.6 % (20.0-50.0); MEAN CORPUSCULAR HEMOGLOBIN 30.1 pg (28.0-32.0); MEAN CORPUSCULAR HGB CONC 31.3 g/dL (31.0-37.0); MEAN CORPUSCULAR VOLUME 96.1 fL (81.0-99.0); MEAN PLATELET VOLUME 9.4 fl (7.4-10.4); NEUTROPHILS % 64.7 % (40.0-76.0); PLATELET 268 x1000/uL (130-400); RED BLOOD CELL COUNT 3.16 mill/uL (4.2-5.4); RED CELL DISTRIBUTION WIDTH 17.9 % (11.6-14.6); WHITE BLOOD COUNT 11.2 x1000/uL (4.5-11.0)
[2023-11-02 05:33] LABS: BG BASE EXCESS -4.3 mmol/L (-2.0-2.0); BG CARBOXYHEMOGLOBIN 0.3 % (0.5-1.5); BG DEOXYHEMOGLOBIN 0.5 % (0.0-5.0); BG FRACTION INSPIRED OXYGEN 100; BG HCO3 ACT 23.9 mmol/L (22.0-26.0); BG METHEMOGLOBIN 0.3 % (0.0-1.5); BG OXYGEN SATURATION 99.5 % (92.0-98.5); BG OXYHEMOGLOBIN 98.9 % (94.0-97.0); BG PCO2 59.9 mmHg (35.0-45.0); BG PH 7.218 (7.350-7.450); BG PO2 412.2 mmHg (75.0-100.0); BG SAMPLE SITE RIGHT RADIAL; BG VENT MODE MASK - BIPAP
[2023-11-02 05:38] LABS: CHLORIDE 107 mEq/L (98-107); POTASSIUM 4.8 mEq/L (3.5-5.1); SODIUM 140 mEq/L (136-145)
[2023-11-02 05:39] LABS: CALCIUM 8.7 mg/dL (8.7-10.4); CARBON DIOXIDE 23 mEq/L (21-32)
[2023-11-02 05:44] LABS: CREATININE 2.2 mg/dL (0.6-1.0); GLUCOSE 198 mg/dL (70-105); UREA NITROGEN BLOOD 35 mg/dL (9-23)
[2023-11-02 05:47] LABS: LACTIC ACID 3.9 mmol/L (0.4-2.0); TROPONIN I HIGH SENSITIVITY 346 ng/L (3.0-34)
[2023-11-02] MEDS: CEFTRIAXONE 1GM/50ML 50 ML IV ONE (06:25)
[2023-11-02] MEDS: AZITHROMYCIN 500MG/250ML 250 ML IV ONE (07:04)
[2023-11-02 08:01] LABS: TROPONIN I HIGH SENSITIVITY 337 ng/L (3.0-34)
[2023-11-02] MEDS: FUROSEMIDE 40MG/4ML VIAL IV SCH (09:45)
[2023-11-02] MEDS ORDERED: DEXTROSE 50% WATER 50ML SYRINGE IV PRN (09:45)
[2023-11-02 10:03] LABS: BG BASE EXCESS -1.9 mmol/L (-2.0-2.0); BG CARBOXYHEMOGLOBIN 0.3 % (0.5-1.5); BG DEOXYHEMOGLOBIN 7.6 % (0.0-5.0); BG FRACTION INSPIRED OXYGEN 40; BG HCO3 ACT 24.7 mmol/L (22.0-26.0); BG METHEMOGLOBIN 0.3 % (0.0-1.5); BG OXYGEN SATURATION 92.4 % (92.0-98.5); BG OXYHEMOGLOBIN 91.8 % (94.0-97.0); BG PCO2 51.1 mmHg (35.0-45.0); BG PH 7.303 (7.350-7.450); BG PO2 71.2 mmHg (75.0-100.0); BG SAMPLE SITE RIGHT RADIAL; BG TOTAL HEMOGLOBIN 9.7 g/dL (12.0-18.0); BG VENT MODE MASK - BIPAP
[2023-11-02 10:26] LABS: TROPONIN I HIGH SENSITIVITY 263 ng/L (3.0-34)
[2023-11-02] MEDS: IPRATROPIUM/ALBUTEROL 0.5-3(2.5)MG/3ML NEB HHN SCH (11:13)
[2023-11-02] MEDS: BLOOD SUGAR DIAGNOSTIC STRIP TEST SCH (13:35)
[2023-11-02] MEDS: METHYLPREDNISOLONE SOD SUCC 125MG/2ML (ACT-O-VIAL) IV SCH (17:00)
[2023-11-02 18:12] LABS: TROPONIN I HIGH SENSITIVITY 263 ng/L (3.0-34)
[2023-11-02] MEDS ORDERED: HYDR25TA MT (21:40)
[2023-11-02] MEDS ORDERED: LISI20TA31 MT (21:40)
[2023-11-02] MEDS ORDERED: METO-539 MT (21:40)
[2023-11-02] MEDS: FAMOTIDINE 20MG TABLET PO SCH (23:13)
[2023-11-02 23:25] LABS: TROPONIN I HIGH SENSITIVITY 255 ng/L (3.0-34)
[2023-11-03] VITALS (18 sets, daily range): BP systolic 127–165; BP diastolic 44–94; PULSE 67–100; RESP 14–30; TEMP 97.7–98.8; O2SAT 99–100
[2023-11-03] MEDS: HYDRALAZINE HCL 50MG TABLET PO SCH (05:13)
[2023-11-03 05:56] LABS: CALCIUM 8.9 mg/dL (8.7-10.4); POTASSIUM 4.9 mEq/L (3.5-5.1)
[2023-11-03 06:02] LABS: CREATININE 2.7 mg/dL (0.6-1.0)
[2023-11-03] MEDS: ACETAMINOPHEN 325MG TABLET PO PRN (06:25)
[2023-11-03 07:07] LABS: BASOPHILS % 0.3 % (0.0-2.0); HEMATOCRIT. 25.4 % (36.0-48.0); HEMOGLOBIN. 8.3 g/dL (12.0-16.0); LYMPHOCYTES % 16.7 % (20.0-50.0); MEAN CORPUSCULAR HEMOGLOBIN 30.7 pg (28.0-32.0); MEAN CORPUSCULAR HGB CONC 32.6 g/dL (31.0-37.0); MEAN CORPUSCULAR VOLUME 94.3 fL (81.0-99.0); MEAN PLATELET VOLUME 9.1 fl (7.4-10.4); MONOCYTES % 1.6 % (2.0-8.0); NEUTROPHILS % 81.4 % (40.0-76.0); PLATELET 199 x1000/uL (130-400); RED BLOOD CELL COUNT 2.69 mill/uL (4.2-5.4); RED CELL DISTRIBUTION WIDTH 17.7 % (11.6-14.6); WHITE BLOOD COUNT 3.1 x1000/uL (4.5-11.0)
[2023-11-03] MEDS ORDERED: CEFTRIAXONE 1GM/50ML 50 ML IV SCH (09:00)
[2023-11-03] MEDS: METOPROLOL TARTRATE 50MG TABLET PO SCH (09:00)
[2023-11-03] MEDS: HYDROCHLOROTHIAZIDE 25MG TABLET PO SCH (09:00)
[2023-11-03] MEDS: LISINOPRIL 20MG TABLET PO SCH (09:00)
[2023-11-03] MEDS: AMLODIPINE 10MG TABLET PO SCH (09:00)
[2023-11-03] MEDS: CEFTRIAXONE 1GM/50ML 50ML IV SCH (11:54)
[2023-11-03] MEDS: METHYLPREDNISOLONE SOD SUCC 40MG/ML (ACT-O-VIAL) IV SCH (11:55)
[2023-11-03] MEDS: VANCOMYCIN 1.5GM/250ML IV SCH (16:00)
[2023-11-03] MEDS: SILDENAFIL CITRATE 20MG TABLET PO SCH (21:33)
[2023-11-03] MEDS: MAGNESIUM/ALUMINUM HYDROXIDE/SIMETHICONE 30ML UDC PO PRN (22:41)
[2023-11-04] VITALS (15 sets, daily range): BP systolic 129–158; BP diastolic 58–117; PULSE 57–84; RESP 14–25; TEMP 97.1–98.4; O2SAT 94–99
[2023-11-04 17:56] LABS: POTASSIUM 5.5 mEq/L (3.5-5.1)
[2023-11-04 17:57] LABS: CALCIUM 8.8 mg/dL (8.7-10.4)
[2023-11-04 18:02] LABS: CREATININE 2.9 mg/dL (0.6-1.0)
[2023-11-04] MEDS: SODIUM POLYSTYRENE SULFONATE 15 G/60 ML BOT PO NR (20:45)
[2023-11-04] MEDS: LACTULOSE 20G/30ML UDC PO NR (20:45)
[2023-11-04] MEDS: AZITHROMYCIN 500MG/250ML IV SCH (20:45)
[2023-11-04 22:29] LABS: POTASSIUM 5.1 mEq/L (3.5-5.1)
[2023-11-04 22:30] LABS: CALCIUM 8.9 mg/dL (8.7-10.4)
[2023-11-05] VITALS (15 sets, daily range): BP systolic 131–166; BP diastolic 50–129; PULSE 65–85; RESP 12–28; TEMP 96.9–97.7; O2SAT 91–96
[2023-11-05] MEDS: AZITHROMYCIN 500 MG TABLET PO SCH (16:28)
[2023-11-05] MEDS ORDERED: AMLODIPINE 10MG TABLET PO SCH (16:30)
[2023-11-05] MEDS ORDERED: DEXTROSE 50% WATER 50ML SYRINGE IV PRN (17:00)
[2023-11-05] MEDS: INSULIN LISPRO 100 UNITS/ML SUBCUT SCH (17:51)
[2023-11-05] MEDS: BLOOD SUGAR DIAGNOSTIC STRIP TEST SCH (17:51)
[2023-11-05 21:45] LABS: CALCIUM 8.6 mg/dL (8.7-10.4)
[2023-11-05 21:49] LABS: CREATININE 2.8 mg/dL (0.6-1.0)
[2023-11-06] VITALS (16 sets, daily range): BP systolic 141–177; BP diastolic 62–109; PULSE 64–96; RESP 12–32; TEMP 97.1–98; O2SAT 95–97
[2023-11-06] MEDS: BUDESONIDE 0.5MG/2ML NEB HHN SCH (00:16)
[2023-11-06 05:15] LABS: CARBON DIOXIDE 28 mEq/L (21-32); CHLORIDE 100 mEq/L (98-107); SODIUM 138 mEq/L (136-145)
[2023-11-06 05:16] LABS: CALCIUM 8.3 mg/dL (8.7-10.4)
[2023-11-06 05:20] LABS: CREATININE 2.7 mg/dL (0.6-1.0); GLUCOSE 124 mg/dL (70-105)
[2023-11-06 05:21] LABS: UREA NITROGEN BLOOD 73 mg/dL (9-23)
[2023-11-06 06:05] LABS: HEMATOCRIT. 28.7 % (36.0-48.0); HEMOGLOBIN. 9.1 g/dL (12.0-16.0); MEAN CORPUSCULAR HEMOGLOBIN 30.3 pg (28.0-32.0); MEAN CORPUSCULAR HGB CONC 31.8 g/dL (31.0-37.0); MEAN CORPUSCULAR VOLUME 95.4 fL (81.0-99.0); MEAN PLATELET VOLUME 8.8 fl (7.4-10.4); PLATELET 209 x1000/uL (130-400); RED BLOOD CELL COUNT 3.01 mill/uL (4.2-5.4); RED CELL DISTRIBUTION WIDTH 17.8 % (11.6-14.6); WHITE BLOOD COUNT 3.7 x1000/uL (4.5-11.0)
[2023-11-06 07:25] LABS: DIFFERENTIAL COMMENT 1
[2023-11-06 10:03] LABS: BG BASE EXCESS 0.8 mmol/L (-2.0-2.0); BG CARBOXYHEMOGLOBIN 0.4 % (0.5-1.5); BG DEOXYHEMOGLOBIN 17.5 % (0.0-5.0); BG FRACTION INSPIRED OXYGEN 32; BG HCO3 ACT 25.5 mmol/L (22.0-26.0); BG METHEMOGLOBIN 0.1 % (0.0-1.5); BG OXYGEN SATURATION 82.4 % (92.0-98.5); BG PCO2 41.5 mmHg (35.0-45.0); BG PH 7.407 (7.350-7.450); BG PO2 46.5 mmHg (75.0-100.0); BG SAMPLE SITE LEFT RADIAL; BG TOTAL HEMOGLOBIN 10.9 g/dL (12.0-18.0); BG VENT MODE NASAL CANNULA
[2023-11-06 16:24] LABS: PLATELET ESTIMATE NORMAL
[2023-11-06] MEDS ORDERED: PULM50 HHN (18:05)
[2023-11-06] MEDS ORDERED: AMLO10TA80 PO (18:05)
[2023-11-06] MEDS ORDERED: IPRA3AMP9 HHN (18:05)
[2023-11-06] MEDS ORDERED: P50 MT (18:05)
[2023-11-06] MEDS: AMLODIPINE 10MG TABLET PO SCH (18:44)
[2023-11-06] MEDS: METHYLPREDNISOLONE SOD SUCC 40MG/ML (ACT-O-VIAL) IV SCH (18:44)
[2023-11-06] MEDS: ONDANSETRON HCL 4MG/2ML INJ IV PRN (22:54)
[2023-11-07] VITALS (13 sets, daily range): BP systolic 132–169; BP diastolic 60–84; PULSE 70–89; RESP 11–23; TEMP 97.4–98.3; O2SAT 98
[2023-11-07] MEDS ORDERED: CLONIDINE 0.1MG TABLET PO PRN (00:30)
[2023-11-07] MEDS: FUROSEMIDE 40MG TABLET PO SCH (09:40)
[2023-11-07 12:47] LABS: CHLORIDE 101 mEq/L (98-107); POTASSIUM 4.6 mEq/L (3.5-5.1); SODIUM 136 mEq/L (136-145)
[2023-11-07 12:48] LABS: CALCIUM 8.6 mg/dL (8.7-10.4); CARBON DIOXIDE 25 mEq/L (21-32)
[2023-11-07 12:53] LABS: CREATININE 2.8 mg/dL (0.6-1.0); GLUCOSE 153 mg/dL (70-105); UREA NITROGEN BLOOD 73 mg/dL (9-23)
[2023-11-07 12:55] LABS: ALANINE AMINOTRANSFERASE 91 IU/L (10-49); ALBUMIN 3.9 g/dL (3.2-4.8); ASPARTATE AMINOTRANSFERASE 25 IU/L (<34); BILIRUBIN TOTAL 0.6 mg/dL (0.1-1.0); PROTEIN TOTAL 6.6 g/dL (6.0-8.3)
[2023-11-07] MEDS: BUDESONIDE 0.5MG/2ML NEB HHN SCH (18:00)
[2023-11-08] VITALS (11 sets, daily range): BP systolic 130–160; BP diastolic 53–86; PULSE 66–89; RESP 15–24; TEMP 97.5–98; O2SAT 98–100
[2023-11-08 07:11] LABS: POTASSIUM 4.9 mEq/L (3.5-5.1)
[2023-11-08 07:12] LABS: CALCIUM 8.8 mg/dL (8.7-10.4)
[2023-11-08 07:17] LABS: CREATININE 3.3 mg/dL (0.6-1.0)
[2023-11-08] MEDS: PREDNISONE 20MG TABLET PO SCH (08:28)
[2023-11-09] MEDS ORDERED: PREDNISONE 20MG TABLET PO SCH (09:00)
== END 2023-11-08 17:01 | disposition home health service (06) | DRG 280 ==
LOC: ER 04:28 → 5EST 05:22 → EDBEDREQSVC 10:46
PROVIDERS: ADMIT Family Medicine; ATTEND Family Medicine
PROC: 5A09457 Assistance with Respiratory Ventilation, 24-96 Consecutive Hours, Continuous Positive Airway Pressure (ICD-10-PCS; principal; 2023-11-02)
DX: I13.0 Hypertensive heart and chronic kidney disease with heart failure and stage 1 through stage 4 chronic kidney disease, or unspecified chronic kidney disease (principal); I50.33 Acute on chronic diastolic (congestive) heart failure; I21.A1 Myocardial infarction type 2; J18.9 Pneumonia, unspecified organism; J96.21 Acute and chronic respiratory failure with hypoxia; J96.22 Acute and chronic respiratory failure with hypercapnia; N17.0 Acute kidney failure with tubular necrosis; J44.1 Chronic obstructive pulmonary disease with (acute) exacerbation; Z20.822 Contact with and (suspected) exposure to COVID-19; I27.20 Pulmonary hypertension, unspecified; I35.0 Nonrheumatic aortic (valve) stenosis; E78.5 Hyperlipidemia, unspecified; D64.9 Anemia, unspecified; I49.3 Ventricular premature depolarization; E11.22 Type 2 diabetes mellitus with diabetic chronic kidney disease; F41.9 Anxiety disorder, unspecified; N18.9 Chronic kidney disease, unspecified; E87.5 Hyperkalemia; E66.9 Obesity, unspecified; Z79.51 Long term (current) use of inhaled steroids; Z86.73 Personal history of transient ischemic attack (TIA), and cerebral infarction without residual deficits; Z79.899 Other long term (current) drug therapy; Z99.81 Dependence on supplemental oxygen
CPT/HCPCS: 36415; 36600; 71045; 80048; 80053; 80061; 82375; 82805; 82962; 83036; 83605; 83735; 83880; 84100; 84145; 84484; 85025; 85379; 87426; 87804; 93005; 93306; 94640; 94644; 94660; 97116; 97162; 99291; A6261; C1893; J0456; J0696; J1815; J1940; J2405; J2919; J2920; J3370; J3475; J7512; J7626

== ENCOUNTER → 2024-01-02 | Outpatient (CLI) | payer MEDICARE, MEDICAID ==
[~2024-01-02] MED LIST changes: +HYDR25TA MT; +LISI20TA31 MT; +METO-539 MT; +P50 MT; +PULM50 HHN
== END | disposition home or self-care (01) ==
LOC: CARD 10:44
PROVIDERS: ATTEND Internal Medicine
DX: I08.8 Other rheumatic multiple valve diseases (principal)
CPT/HCPCS: 93306

== ENCOUNTER 2024-07-16 13:52 | Inpatient (IN) | payer MEDICARE, MEDICAID ==
[~2024-07-16] VITALS: Ht 167.6 cm; Wt 74.4 kg
[~2024-07-16 13:52] MED LIST changes: -BUDE90AE INH; +BUDE90AE3 INH; +HYDR100T11 MT
[2024-07-16] MEDS: METHYLPREDNISOLONE SOD SUCC 125MG/2ML (ACT-O-VIAL) IV STA (14:04)
[2024-07-16] MEDS: MAGNESIUM 2 G PREMIX 50 ML IV ONE (14:06)
[2024-07-16 14:09] VITALS: RESP 26
[2024-07-16] MEDS: ALBUTEROL (0.083%) 2.5MG/3ML NEB HHN SCH (14:09)
[2024-07-16] MEDS: IPRATROPIUM BROMIDE (0.02%) 0.5MG/2.5ML NEB HHN STA (14:10)
[2024-07-16 14:15] LABS: BASOPHILS % 0.5 % (0.0-2.0); DIFFERENTIAL COMMENT 0; HEMATOCRIT. 31.5 % (36.0-48.0); HEMOGLOBIN. 9.7 g/dL (12.0-16.0); LYMPHOCYTES % 13.4 % (20.0-50.0); MEAN CORPUSCULAR HEMOGLOBIN 31.1 pg (28.0-32.0); MEAN CORPUSCULAR HGB CONC 30.9 g/dL (31.0-37.0); MEAN CORPUSCULAR VOLUME 100.7 fL (81.0-99.0); MEAN PLATELET VOLUME 8.1 fl (7.4-10.4); MONOCYTES % 1.9 % (2.0-8.0); NEUTROPHILS % 84.2 % (40.0-76.0); PLATELET 198 x1000/uL (130-400); RED BLOOD CELL COUNT 3.13 mill/uL (4.2-5.4); WHITE BLOOD COUNT 5.5 x1000/uL (4.5-11.0)
[2024-07-16 14:24] LABS: CHLORIDE 108 mEq/L (98-107); POTASSIUM 5.8 mEq/L (3.5-5.1); SODIUM 139 mEq/L (136-145)
[2024-07-16 14:25] LABS: CALCIUM 7.5 mg/dL (8.7-10.4); CARBON DIOXIDE 17 mEq/L (21-32)
[2024-07-16 14:30] LABS: GLUCOSE 150 mg/dL (70-105)
[2024-07-16 14:32] LABS: ALANINE AMINOTRANSFERASE 17 IU/L (10-49); ALBUMIN 3.4 g/dL (3.2-4.8); ASPARTATE AMINOTRANSFERASE 27 IU/L (<34); BILIRUBIN DIRECT 0.2 mg/dL (<=3.0); BILIRUBIN TOTAL 0.5 mg/dL (0.1-1.0)
[2024-07-16 14:36] LABS: CREATININE 6.9 mg/dL (0.6-1.0); UREA NITROGEN BLOOD 116 mg/dL (9-23)
[2024-07-16 14:37] LABS: TROPONIN I HIGH SENSITIVITY 435 ng/L (3.0-34)
[2024-07-16 14:38] LABS: PROTHROMBIN TIME 10.4 sec (9.6-11.0)
[2024-07-16 16:18] LABS: INFLUENZA TYPE A Presumptive Negative (Pres. Neg.); INFLUENZA TYPE B Presumptive Negative (Pres. Neg.)
[2024-07-16] MEDS: FUROSEMIDE 40MG/4ML VIAL IVP NR (16:27)
[2024-07-16] MEDS: ENOXAPARIN 80MG/0.8ML SYR SUBCUT NR (16:30)
[2024-07-16 17:33] VITALS: RESP 27
[2024-07-16] MEDS ORDERED: IPRATROPIUM/ALBUTEROL 0.5-3(2.5)MG/3ML NEB HHN PRN (17:45)
[2024-07-16] MEDS ORDERED: ACETAMINOPHEN 325MG TABLET PO PRN (17:45)
[2024-07-16] MEDS ORDERED: MAGNESIUM/ALUMINUM HYDROXIDE/SIMETHICONE 30ML UDC PO PRN (17:45)
[2024-07-16] MEDS ORDERED: BUDESONIDE 0.5MG/2ML NEB HHN SCH (18:00)
[2024-07-16] MEDS ORDERED: ASPIRIN 81MG EC TABLET PO SCH (18:00)
[2024-07-16] MEDS ORDERED: AMLODIPINE 5MG TABLET PO SCH (18:00)
[2024-07-16 19:29] LABS: BG CARBOXYHEMOGLOBIN 0.7 % (0.5-1.5); BG DEOXYHEMOGLOBIN 1.8 % (0.0-5.0); BG FRACTION INSPIRED OXYGEN 60; BG HCO3 ACT 12.5 mmol/L (21.0-28.0); BG METHEMOGLOBIN 0.3 % (0.5-1.5); BG OXYGEN SATURATION 98.2 % (94.0-98.0); BG OXYHEMOGLOBIN 97.2 % (94.0-98.0); BG PCO2 27.5 mmHg (32.0-45.0); BG PH 7.274 (7.350-7.450); BG PO2 118.1 mmHg (83.0-108.0); BG SAMPLE SITE LEFT BRACHIAL; BG VENT MODE MASK - SIMPLE
[2024-07-16 19:33] LABS: TROPONIN I HIGH SENSITIVITY 403 ng/L (3.0-34)
[2024-07-16 20:00] VITALS: BP 156/76; PULSE 73; RESP 21; TEMP 36.7; O2SAT 100
[2024-07-16] MEDS: AMLODIPINE 5MG TABLET PO SCH (20:48)
[2024-07-16] MEDS: ASPIRIN 81MG EC TABLET PO SCH (20:48)
[2024-07-16] MEDS: INSULIN REGULAR (HUMULIN R) 1000UNITS/10ML VIAL IV NR (20:49)
[2024-07-16] MEDS: METOPROLOL TARTRATE 50MG TABLET PO SCH (20:49)
[2024-07-16] MEDS: DEXTROSE 50% WATER 50ML SYRINGE IV NR (20:50)
[2024-07-16] MEDS: SODIUM BICARBONATE 8.4% 50MEQ/50ML SYR IV NR (20:50)
[2024-07-16] MEDS: CALCIUM CHLORIDE 1GM/10ML SYR IV NR (20:50)
[2024-07-16 21:00] VITALS: BP 171/68; PULSE 72; RESP 20; TEMP 36.7
[2024-07-16] MEDS: FAMOTIDINE 20MG TABLET PO SCH (21:07)
[2024-07-16 21:30] VITALS: PULSE 80; RESP 20; O2SAT 99
[2024-07-16] MEDS: BUDESONIDE 0.5MG/2ML NEB HHN SCH (21:30)
[2024-07-16] MEDS: ALBUTEROL (0.5%) 2.5MG/0.5ML NEB HHN SCH (21:31)
[2024-07-16 22:00] VITALS: BP 187/81; PULSE 80; RESP 25; O2SAT 96
[2024-07-16] MEDS: SILDENAFIL CITRATE 20MG TABLET PO SCH (22:08)
[2024-07-16] MEDS: SODIUM POLYSTYRENE SULFONATE 15 G/60 ML BOT PO NR (22:08)
[2024-07-17] VITALS (28 sets, daily range): BP systolic 117–164; BP diastolic 65–109; PULSE 61–93; RESP 15–28; TEMP 36.6–37.2; O2SAT 90–100
[2024-07-17] MEDS: ACETYLCYSTEINE 200MG/ML 20% VIAL 4ML INH SCH (00:41)
[2024-07-17] MEDS: CLONIDINE 0.1MG TABLET PO PRN (00:56)
[2024-07-17 04:06] LABS: TROPONIN I HIGH SENSITIVITY 350 ng/L (3.0-34)
[2024-07-17 07:04] LABS: BASOPHILS % 0.1 % (0.0-2.0); DIFFERENTIAL COMMENT 0; HEMATOCRIT. 25.5 % (36.0-48.0); HEMOGLOBIN. 8.1 g/dL (12.0-16.0); LYMPHOCYTES % 17.6 % (20.0-50.0); MEAN CORPUSCULAR HEMOGLOBIN 31.8 pg (28.0-32.0); MEAN CORPUSCULAR HGB CONC 31.6 g/dL (31.0-37.0); MEAN CORPUSCULAR VOLUME 100.7 fL (81.0-99.0); MEAN PLATELET VOLUME 8.3 fl (7.4-10.4); MONOCYTES % 2.6 % (2.0-8.0); NEUTROPHILS % 79.7 % (40.0-76.0); PLATELET 142 x1000/uL (130-400); RED BLOOD CELL COUNT 2.53 mill/uL (4.2-5.4); RED CELL DISTRIBUTION WIDTH 18.4 % (11.6-14.6); WHITE BLOOD COUNT 3.2 x1000/uL (4.5-11.0)
[2024-07-17 07:09] LABS: CARBON DIOXIDE 15 mEq/L (21-32); CHLORIDE 105 mEq/L (98-107); POTASSIUM 5.8 mEq/L (3.5-5.1); SODIUM 138 mEq/L (136-145)
[2024-07-17 07:10] LABS: CALCIUM 7.9 mg/dL (8.7-10.4)
[2024-07-17 07:14] LABS: GLUCOSE 110 mg/dL (70-105)
[2024-07-17 07:15] LABS: TRIGLYCERIDE 113 mg/dL (0-150)
[2024-07-17 07:16] LABS: LDL CHOLESTEROL 81 mg/dL (5-100)
[2024-07-17 07:17] LABS: CHOLESTEROL 127 mg/dL (<200); HDL CHOLESTEROL 24 mg/dL (>65); PHOSPHORUS 7.7 mg/dL (2.5-4.9); T4 FREE 1.05 ng/dL (0.89-1.76); THYROID STIMULATING HORMONE 0.26 uIU/mL (0.55-4.78)
[2024-07-17 07:33] LABS: UREA NITROGEN BLOOD 125 mg/dL (9-23)
[2024-07-17 07:34] LABS: CREATININE 7.7 mg/dL (0.6-1.0)
[2024-07-17 08:11] LABS: TROPONIN I HIGH SENSITIVITY 334 ng/L (3.0-34)
[2024-07-17] MEDS ORDERED: LISINOPRIL 20MG TABLET PO SCH (09:00)
[2024-07-17] MEDS: PREDNISONE 20MG TABLET PO SCH (09:19)
[2024-07-17] MEDS: HYDROCHLOROTHIAZIDE 25MG TABLET PO SCH (09:19)
[2024-07-17] MEDS: FUROSEMIDE 40MG TABLET PO SCH (09:20)
[2024-07-17] MEDS: FUROSEMIDE 100MG/10ML VIAL IVP NR (11:13)
[2024-07-17] MEDS: SODIUM POLYSTYRENE SULFONATE 15 G/60 ML BOT PO NR (11:13)
[2024-07-17] MEDS: SODIUM BICARBONATE 8.4% 50MEQ/50ML SYR IV NR (11:14)
[2024-07-17] MEDS ORDERED: ATROPINE SULFATE 1MG/10ML SYR IV PRN (12:30)
[2024-07-17 12:47] LABS: HEPATITIS B SURFACE ANTIGEN NEGATIVE (Negative)
[2024-07-17 13:08] LABS: HEPATITIS A AB IGM NEGATIVE (Negative); HEPATITIS B CORE AB IGM NEGATIVE (Negative)
[2024-07-17 13:09] LABS: HEPATITIS C AB NON REACTIVE (Neg) (Negative)
[2024-07-17] MEDS: IPRATROPIUM/ALBUTEROL 0.5-3(2.5)MG/3ML NEB HHN PRN (14:28)
[2024-07-17] MEDS: ENOXAPARIN 30MG/0.3ML SYR SUBCUT SCH (16:30)
[2024-07-17] MEDS: ATORVASTATIN CALCIUM 40MG TABLET PO SCH (21:21)
[2024-07-17] MEDS: EPOETIN ALFA-EPBX 4,000 UNIT/ML VIAL SUBCUT SCH (21:21)
[2024-07-17] MEDS: HYDRALAZINE HCL 100MG TABLET PO SCH (21:28)
[2024-07-18] VITALS (24 sets, daily range): BP systolic 101–167; BP diastolic 56–98; PULSE 78–98; RESP 14–25; TEMP 36.4–37.4; O2SAT 83–100
[2024-07-18 07:28] LABS: CARBON DIOXIDE 26 mEq/L (21-32); CHLORIDE 100 mEq/L (98-107); SODIUM 142 mEq/L (136-145)
[2024-07-18 07:29] LABS: CALCIUM 6.7 mg/dL (8.7-10.4); HEMATOCRIT. 27.7 % (36.0-48.0); MEAN CORPUSCULAR HEMOGLOBIN 33.1 pg (28.0-32.0); MEAN CORPUSCULAR HGB CONC 32.6 g/dL (31.0-37.0); MEAN CORPUSCULAR VOLUME 101.5 fL (81.0-99.0); PLATELET 133 x1000/uL (130-400); RED BLOOD CELL COUNT 2.73 mill/uL (4.2-5.4); RED CELL DISTRIBUTION WIDTH 20.4 % (11.6-14.6); WHITE BLOOD COUNT 9.7 x1000/uL (4.5-11.0)
[2024-07-18 07:33] LABS: GLUCOSE 126 mg/dL (70-105)
[2024-07-18 07:34] LABS: UREA NITROGEN BLOOD 88 mg/dL (9-23)
[2024-07-18 07:36] LABS: CREATININE 6.6 mg/dL (0.6-1.0); PHOSPHORUS 5.9 mg/dL (2.5-4.9); POTASSIUM 3.3 mEq/L (3.5-5.1)
[2024-07-18 07:50] LABS: DIFFERENTIAL COMMENT 1
[2024-07-18] MEDS ORDERED: LOSARTAN 100 MG TABLET PO SCH (09:00)
[2024-07-18] MEDS: FUROSEMIDE 40MG TABLET PO SCH (09:34)
[2024-07-18] MEDS: AMLODIPINE 10MG TABLET PO SCH (09:34)
[2024-07-18 11:08] LABS: PLATELET ESTIMATE NORMAL
[2024-07-18] MEDS: LIDOCAINE 5% PATCH TOP SCH (13:54)
[2024-07-18] MEDS: MELATONIN 3MG TABLET PO SCH (21:44)
[2024-07-18] MEDS: ACETAMINOPHEN 325MG TABLET PO PRN (21:44)
[2024-07-19] VITALS (17 sets, daily range): BP systolic 111–163; BP diastolic 56–100; PULSE 82–113; RESP 16–28; TEMP 36.22512–37.3; O2SAT 95–100
[2024-07-19 07:16] LABS: BASOPHILS % 0.1 % (0.0-2.0); DIFFERENTIAL COMMENT 0; EOSINOPHILS % 0.3 % (0.0-5.0); HEMATOCRIT. 25.9 % (36.0-48.0); HEMOGLOBIN. 8.3 g/dL (12.0-16.0); LYMPHOCYTES % 12.4 % (20.0-50.0); MEAN CORPUSCULAR HEMOGLOBIN 32.5 pg (28.0-32.0); MEAN CORPUSCULAR HGB CONC 32.1 g/dL (31.0-37.0); MEAN CORPUSCULAR VOLUME 101.3 fL (81.0-99.0); MEAN PLATELET VOLUME 8.5 fl (7.4-10.4); MONOCYTES % 7.9 % (2.0-8.0); NEUTROPHILS % 79.3 % (40.0-76.0); PLATELET 104 x1000/uL (130-400); RED BLOOD CELL COUNT 2.56 mill/uL (4.2-5.4); RED CELL DISTRIBUTION WIDTH 20.1 % (11.6-14.6); WHITE BLOOD COUNT 6.9 x1000/uL (4.5-11.0)
[2024-07-19 07:28] LABS: CARBON DIOXIDE 28 mEq/L (21-32); CHLORIDE 106 mEq/L (98-107); POTASSIUM 3.2 mEq/L (3.5-5.1); SODIUM 143 mEq/L (136-145)
[2024-07-19 07:33] LABS: GLUCOSE 102 mg/dL (70-105)
[2024-07-19 07:34] LABS: UREA NITROGEN BLOOD 55 mg/dL (9-23)
[2024-07-19 07:36] LABS: PHOSPHORUS 4.8 mg/dL (2.5-4.9)
[2024-07-19 07:38] LABS: VITAMIN B12 SERUM 509 pg/mL (211-911)
[2024-07-19 07:39] LABS: FOLIC ACID (FOLATE) SERUM 13.26 ng/mL (>5.38)
[2024-07-19 08:43] LABS: CREATININE 5.9 mg/dL (0.6-1.0)
[2024-07-19] MEDS: POTASSIUM CHLORIDE 20MEQ TABLET SR PO NR (12:38)
[2024-07-19] MEDS: GUAIFENESIN 200MG/10ML SUGAR FREE UDC PO PRN (17:05)
[2024-07-20] VITALS (17 sets, daily range): BP systolic 112–158; BP diastolic 55–106; PULSE 73–95; RESP 14–26; TEMP 36.4–37; O2SAT 95–100
[2024-07-20 07:12] LABS: CHLORIDE 104 mEq/L (98-107); POTASSIUM 3.7 mEq/L (3.5-5.1); SODIUM 141 mEq/L (136-145)
[2024-07-20 07:13] LABS: CALCIUM 7.9 mg/dL (8.7-10.4); CARBON DIOXIDE 27 mEq/L (21-32)
[2024-07-20 07:18] LABS: GLUCOSE 97 mg/dL (70-105); UREA NITROGEN BLOOD 28 mg/dL (9-23)
[2024-07-20 07:21] LABS: PHOSPHORUS 3.1 mg/dL (2.5-4.9)
[2024-07-20 08:46] LABS: CREATININE 4.1 mg/dL (0.6-1.0)
[2024-07-20] MEDS: ONDANSETRON HCL 4MG/2ML INJ IV PRN (13:55)
[2024-07-20] MEDS ORDERED: ISOSORBIDE MONONITRATE 30MG TABLET SR 24HR PO SCH (14:00)
[2024-07-20 20:54] LABS: HEMATOCRIT 30.7 % (36.0-48.0); HEMOGLOBIN 9.5 g/dL (12.0-16.0)
[2024-07-20] MEDS: DOCUSATE SODIUM 100MG CAPSULE PO PRN (23:16)
[2024-07-21] VITALS (16 sets, daily range): BP systolic 85–164; BP diastolic 49–80; PULSE 62–108; RESP 15–20; TEMP 36.3–36.9; O2SAT 97–100
== END 2024-07-21 15:35 | disposition home health service (06) | DRG 280 ==
LOC: ER 13:52 → 5EST 16:59 → EDBEDREQTM 17:03 → EDBEDREQ 17:03 → 8WST 07-20 16:30
PROVIDERS: ADMIT Hospitalist; ATTEND Hospitalist
PROC: 5A09357 Assistance with Respiratory Ventilation, Less than 24 Consecutive Hours, Continuous Positive Airway Pressure (ICD-10-PCS; principal; 2024-07-16)
PROC: 5A09357 Assistance with Respiratory Ventilation, Less than 24 Consecutive Hours, Continuous Positive Airway Pressure (ICD-10-PCS; 2024-07-17)
PROC: 5A1D70Z Performance of Urinary Filtration, Intermittent, Less than 6 Hours Per Day (ICD-10-PCS; 2024-07-17)
PROC: 5A09357 Assistance with Respiratory Ventilation, Less than 24 Consecutive Hours, Continuous Positive Airway Pressure (ICD-10-PCS; 2024-07-18)
PROC: 5A1D70Z Performance of Urinary Filtration, Intermittent, Less than 6 Hours Per Day (ICD-10-PCS; 2024-07-18)
PROC: 5A1D70Z Performance of Urinary Filtration, Intermittent, Less than 6 Hours Per Day (ICD-10-PCS; 2024-07-19)
PROC: 5A1D70Z Performance of Urinary Filtration, Intermittent, Less than 6 Hours Per Day (ICD-10-PCS; 2024-07-21)
DX: I13.2 Hypertensive heart and chronic kidney disease with heart failure and with stage 5 chronic kidney disease, or end stage renal disease (principal); I50.33 Acute on chronic diastolic (congestive) heart failure; I21.A1 Myocardial infarction type 2; J96.21 Acute and chronic respiratory failure with hypoxia; N18.6 End stage renal disease; J44.1 Chronic obstructive pulmonary disease with (acute) exacerbation; I16.1 Hypertensive emergency; E87.20 Acidosis, unspecified; Z99.2 Dependence on renal dialysis; D50.9 Iron deficiency anemia, unspecified; D53.9 Nutritional anemia, unspecified; I27.20 Pulmonary hypertension, unspecified; E11.22 Type 2 diabetes mellitus with diabetic chronic kidney disease; Z95.2 Presence of prosthetic heart valve; Z91.158 Patient's noncompliance with renal dialysis for other reason; E83.51 Hypocalcemia; E78.5 Hyperlipidemia, unspecified; E53.8 Deficiency of other specified B group vitamins; I44.4 Left anterior fascicular block; I49.3 Ventricular premature depolarization; F41.9 Anxiety disorder, unspecified; I25.10 Atherosclerotic heart disease of native coronary artery without angina pectoris; E87.5 Hyperkalemia; D72.819 Decreased white blood cell count, unspecified; Z87.891 Personal history of nicotine dependence; Z79.82 Long term (current) use of aspirin; Z83.3 Family history of diabetes mellitus; Z99.81 Dependence on supplemental oxygen; Z99.3 Dependence on wheelchair; Z91.199 Patient's noncompliance with other medical treatment and regimen due to unspecified reason; Z86.73 Personal history of transient ischemic attack (TIA), and cerebral infarction without residual deficits; Z82.49 Family history of ischemic heart disease and other diseases of the circulatory system
CPT/HCPCS: 36415; 36600; 71045; 80048; 80061; 80076; 82375; 82607; 82746; 82805; 83735; 83880; 84100; 84439; 84443; 84484; 85014; 85018; 85025; 86705; 86709; 87340; 87804; 90935; 93005; 93306; 94070; 94640; 94660; 94664; 98960; 99291; A4606; J0885; J1650; J1815; J1940; J2405; J2919; J3475; J3490; J7512; J7608; J7626

== ENCOUNTER 2024-07-28 08:08 | Inpatient (IN) | payer MEDICARE, MEDICAID ==
[~2024-07-28] VITALS: Ht 167.6 cm; Wt 74.4 kg
[2024-07-28] VITALS (10 sets, daily range): BP systolic 128–170; BP diastolic 76–95; PULSE 20–96; RESP 16–39; TEMP 36.50292–36.8; O2SAT 95–100
[~2024-07-28 08:08] MED LIST changes: -AZIT250T MT; -BUDE90AE3 INH; -GUAI120015 PO; -HYDR100T11 MT; -LISI20TA31 MT; -P20 MT; -P50 MT
[2024-07-28] MEDS: METHYLPREDNISOLONE SOD SUCC 125MG/2ML (ACT-O-VIAL) IV STA (08:23)
[2024-07-28] MEDS: ALBUTEROL (0.083%) 2.5MG/3ML NEB HHN SCH (08:30)
[2024-07-28] MEDS: IPRATROPIUM BROMIDE (0.02%) 0.5MG/2.5ML NEB HHN STA (08:30)
[2024-07-28 08:40] LABS: BASOPHILS % 0.2 % (0.0-2.0); EOSINOPHILS % 1.1 % (0.0-5.0); HEMATOCRIT. 25.1 % (36.0-48.0); HEMOGLOBIN. 8.1 g/dL (12.0-16.0); LYMPHOCYTES % 12.4 % (20.0-50.0); MEAN CORPUSCULAR HGB CONC 32.3 g/dL (31.0-37.0); MEAN CORPUSCULAR VOLUME 99.1 fL (81.0-99.0); MEAN PLATELET VOLUME 9.2 fl (7.4-10.4); MONOCYTES % 5.4 % (2.0-8.0); NEUTROPHILS % 80.9 % (40.0-76.0); PLATELET 152 x1000/uL (130-400); RED BLOOD CELL COUNT 2.54 mill/uL (4.2-5.4); RED CELL DISTRIBUTION WIDTH 18.2 % (11.6-14.6); WHITE BLOOD COUNT 12.4 x1000/uL (4.5-11.0)
[2024-07-28 08:42] LABS: CHLORIDE 104 mEq/L (98-107); POTASSIUM 4.6 mEq/L (3.5-5.1); SODIUM 141 mEq/L (136-145)
[2024-07-28 08:43] LABS: CALCIUM 6.6 mg/dL (8.7-10.4); CARBON DIOXIDE 23 mEq/L (21-32)
[2024-07-28 08:48] LABS: GLUCOSE 132 mg/dL (70-105); UREA NITROGEN BLOOD 81 mg/dL (9-23)
[2024-07-28 08:52] LABS: CREATININE 9.1 mg/dL (0.6-1.0); TROPONIN I HIGH SENSITIVITY 246 ng/L (3.0-34)
[2024-07-28] MEDS: ENOXAPARIN 60MG/0.6ML SYR SUBCUT ONE (09:59)
[2024-07-28] MEDS: ASPIRIN 325MG TABLET PO ONE (09:59)
[2024-07-28 11:19] LABS: TROPONIN I HIGH SENSITIVITY 242 ng/L (3.0-34)
[2024-07-28 11:51] LABS: HEPATITIS B SURFACE ANTIGEN NEGATIVE (Negative)
[2024-07-28] MEDS ORDERED: DEXTROSE 50% WATER 50ML SYRINGE IV PRN (12:00)
[2024-07-28] MEDS ORDERED: IPRATROPIUM/ALBUTEROL 0.5-3(2.5)MG/3ML NEB HHN PRN (12:00)
[2024-07-28 12:12] LABS: HEPATITIS A AB IGM NEGATIVE (Negative)
[2024-07-28 12:13] LABS: HEPATITIS B CORE AB IGM NEGATIVE (Negative); HEPATITIS C AB NON REACTIVE (Neg) (Negative)
[2024-07-28 12:42] LABS: PHOSPHORUS 6.2 mg/dL (2.5-4.9)
[2024-07-28 12:45] LABS: T4 FREE 1.47 ng/dL (0.89-1.76); THYROID STIMULATING HORMONE 0.93 uIU/mL (0.55-4.78)
[2024-07-28] MEDS: INSULIN LISPRO 100 UNITS/ML SUBCUT SCH (13:11)
[2024-07-28] MEDS: BLOOD SUGAR DIAGNOSTIC STRIP TEST SCH (13:11)
[2024-07-28] MEDS: SILDENAFIL CITRATE 20MG TABLET PO SCH (14:44)
[2024-07-28] MEDS: HYDRALAZINE HCL 50MG TABLET PO SCH (14:44)
[2024-07-28] MEDS: IPRATROPIUM/ALBUTEROL 0.5-3(2.5)MG/3ML NEB HHN SCH (19:59)
[2024-07-28] MEDS ORDERED: MELATONIN 3MG TABLET PO PRN (21:00)
[2024-07-28] MEDS: ACETAMINOPHEN 325MG TABLET PO PRN (21:49)
[2024-07-28] MEDS: GUAIFENESIN 600MG ER TABLET PO SCH (21:49)
[2024-07-28] MEDS: PANTOPRAZOLE 40MG DR TABLET PO NR (22:30)
[2024-07-29] VITALS (17 sets, daily range): BP systolic 116–188; BP diastolic 62–85; PULSE 74–163; RESP 13–29; TEMP 36.2–37.2; O2SAT 90–100
[2024-07-29] MEDS: MAGNESIUM 2 G PREMIX 50 ML IV NR (06:48)
[2024-07-29 07:33] LABS: CALCIUM 7.4 mg/dL (8.7-10.4); CARBON DIOXIDE 26 mEq/L (21-32); CHLORIDE 104 mEq/L (98-107); POTASSIUM 4.6 mEq/L (3.5-5.1); SODIUM 142 mEq/L (136-145)
[2024-07-29 07:38] LABS: IRON 46 ug/dL (50-170)
[2024-07-29 07:39] LABS: GLUCOSE 135 mg/dL (70-105); UREA NITROGEN BLOOD 56 mg/dL (9-23)
[2024-07-29 07:40] LABS: BASOPHILS % 0.2 % (0.0-2.0); HEMATOCRIT. 22.1 % (36.0-48.0); HEMOGLOBIN. 7.2 g/dL (12.0-16.0); LYMPHOCYTES % 11.2 % (20.0-50.0); MEAN CORPUSCULAR HEMOGLOBIN 32.2 pg (28.0-32.0); MEAN CORPUSCULAR HGB CONC 32.5 g/dL (31.0-37.0); MEAN CORPUSCULAR VOLUME 98.9 fL (81.0-99.0); MEAN PLATELET VOLUME 8.5 fl (7.4-10.4); MONOCYTES % 7.1 % (2.0-8.0); NEUTROPHILS % 81.5 % (40.0-76.0); PLATELET 112 x1000/uL (130-400); RED BLOOD CELL COUNT 2.23 mill/uL (4.2-5.4); RED CELL DISTRIBUTION WIDTH 17.7 % (11.6-14.6); WHITE BLOOD COUNT 3.4 x1000/uL (4.5-11.0)
[2024-07-29 07:41] LABS: CREATININE 6.8 mg/dL (0.6-1.0); TOTAL IRON BINDING CAPACITY 468 ug/dl (250-425)
[2024-07-29 08:01] LABS: FOLIC ACID (FOLATE) SERUM 6.44 ng/mL (>5.38)
[2024-07-29 08:02] LABS: FERRITIN 738 ng/mL (10-291); VITAMIN B12 SERUM 762 pg/mL (211-911)
[2024-07-29] MEDS: PREDNISONE 20MG TABLET PO SCH (08:31)
[2024-07-29] MEDS: PANTOPRAZOLE 40MG DR TABLET PO SCH (08:32)
[2024-07-29] MEDS: AMLODIPINE 10MG TABLET PO SCH (08:32)
[2024-07-29] MEDS: FUROSEMIDE 40MG/4ML VIAL IVP SCH (08:32)
[2024-07-29] MEDS: ENOXAPARIN 40MG/0.4ML SYR SUBCUT SCH (09:32)
[2024-07-29] MEDS ORDERED: CEFEPIME 1GM IN DEXT 5% 50ML IV SCH (10:00)
[2024-07-29] MEDS ORDERED: CEFTRIAXONE 1GM/50ML 50 ML IV SCH (10:00)
[2024-07-29] MEDS: METOPROLOL TARTRATE 5MG/5ML VIAL IV NR (10:02)
[2024-07-29] MEDS: AZITHROMYCIN 500 MG TABLET PO SCH (11:24)
[2024-07-29] MEDS: CEFEPIME 2GM/50ML DUPLEX 50 ML IV SCH (13:27)
[2024-07-29] MEDS ORDERED: DOCUSATE SODIUM 250MG CAPSULE PO PRN (17:45)
[2024-07-29] MEDS: HYDRALAZINE 20MG/ML VIAL IV PRN (18:10)
[2024-07-29] MEDS: IPRATROPIUM BROMIDE (0.02%) 0.5MG/2.5ML NEB HHN SCH (20:03)
[2024-07-29] MEDS: HYDROXYZINE 10MG TABLET PO PRN (21:32)
[2024-07-29] MEDS: HYDRALAZINE HCL 100MG TABLET PO SCH (21:32)
[2024-07-30] VITALS (18 sets, daily range): BP systolic 115–184; BP diastolic 72–103; PULSE 59–111; RESP 14–24; TEMP 36.2–37.1; O2SAT 94–100
[2024-07-30 06:37] LABS: BASOPHILS % 0.3 % (0.0-2.0); HEMATOCRIT. 23.6 % (36.0-48.0); HEMOGLOBIN. 7.7 g/dL (12.0-16.0); LYMPHOCYTES % 14.3 % (20.0-50.0); MEAN CORPUSCULAR HEMOGLOBIN 31.9 pg (28.0-32.0); MEAN CORPUSCULAR HGB CONC 32.5 g/dL (31.0-37.0); MEAN PLATELET VOLUME 9.6 fl (7.4-10.4); MONOCYTES % 6.8 % (2.0-8.0); NEUTROPHILS % 78.6 % (40.0-76.0); PLATELET 141 x1000/uL (130-400); RED BLOOD CELL COUNT 2.41 mill/uL (4.2-5.4); RED CELL DISTRIBUTION WIDTH 17.7 % (11.6-14.6); WHITE BLOOD COUNT 6.1 x1000/uL (4.5-11.0)
[2024-07-30 06:40] LABS: CHLORIDE 103 mEq/L (98-107); POTASSIUM 4.7 mEq/L (3.5-5.1); SODIUM 141 mEq/L (136-145)
[2024-07-30 06:41] LABS: CALCIUM 7.3 mg/dL (8.7-10.4); CARBON DIOXIDE 24 mEq/L (21-32)
[2024-07-30 06:46] LABS: GLUCOSE 107 mg/dL (70-105); UREA NITROGEN BLOOD 76 mg/dL (9-23)
[2024-07-30 06:49] LABS: PHOSPHORUS 5.8 mg/dL (2.5-4.9)
[2024-07-30 06:57] LABS: CREATININE 8.2 mg/dL (0.6-1.0)
[2024-07-30] MEDS: CALCIUM ACETATE 667MG CAPSULE PO SCH (08:07)
[2024-07-30] MEDS: ENOXAPARIN 80MG/0.8ML SYR SUBCUT NR (13:14)
[2024-07-30] MEDS: METOPROLOL TARTRATE 25MG TABLET PO SCH (13:17)
[2024-07-30 17:23] LABS: CREATINE KINASE MB FRACTION 2.3 ng/mL (0.5-3.6)
[2024-07-30] MEDS ORDERED: KETOROLAC 15MG/ML VIAL IV NR (19:05)
[2024-07-30] MEDS ORDERED: LISI20TA31 PO (19:23)
[2024-07-30 22:20] LABS: CREATINE KINASE MB FRACTION 1.4 ng/mL (0.5-3.6)
[2024-07-31] VITALS (16 sets, daily range): BP systolic 117–193; BP diastolic 57–83; PULSE 68–180; RESP 10–22; TEMP 36.5–37.1; O2SAT 97–100
[2024-07-31 07:24] LABS: CHLORIDE 99 mEq/L (98-107); POTASSIUM 4.5 mEq/L (3.5-5.1); SODIUM 138 mEq/L (136-145)
[2024-07-31 07:25] LABS: CALCIUM 7.2 mg/dL (8.7-10.4); CARBON DIOXIDE 27 mEq/L (21-32)
[2024-07-31 07:29] LABS: PARTIAL THROMBOPLASTIN TIME 28.8 sec (23.4-31.0); PROTHROMBIN TIME 10.5 sec (9.6-11.0)
[2024-07-31 07:30] LABS: CREATINE KINASE MB FRACTION 0.8 ng/mL (0.5-3.6); GLUCOSE 94 mg/dL (70-105); UREA NITROGEN BLOOD 68 mg/dL (9-23)
[2024-07-31 07:32] LABS: PHOSPHORUS 5.3 mg/dL (2.5-4.9)
[2024-07-31 07:38] LABS: CREATININE 6.9 mg/dL (0.6-1.0)
[2024-07-31 08:39] LABS: BASOPHILS % 0.1 % (0.0-2.0); EOSINOPHILS % 0.6 % (0.0-5.0); HEMATOCRIT. 21.5 % (36.0-48.0); LYMPHOCYTES % 26.5 % (20.0-50.0); MEAN CORPUSCULAR HEMOGLOBIN 31.6 pg (28.0-32.0); MEAN CORPUSCULAR HGB CONC 32.8 g/dL (31.0-37.0); MEAN CORPUSCULAR VOLUME 96.4 fL (81.0-99.0); MEAN PLATELET VOLUME 8.6 fl (7.4-10.4); MONOCYTES % 8.4 % (2.0-8.0); NEUTROPHILS % 64.4 % (40.0-76.0); PLATELET 120 x1000/uL (130-400); RED BLOOD CELL COUNT 2.23 mill/uL (4.2-5.4); RED CELL DISTRIBUTION WIDTH 17.3 % (11.6-14.6); WHITE BLOOD COUNT 5.6 x1000/uL (4.5-11.0)
[2024-07-31] MEDS ORDERED: FERROUS SULFATE 325MG TABLET PO SCH (09:00)
[2024-07-31] MEDS: ENOXAPARIN 80MG/0.8ML SYR SUBCUT SCH (13:20)
[2024-07-31] MEDS ORDERED: PROMETHAZINE/DEXTROMETHORPHAN 6.25-15MG/5ML PO PRN (15:00)
[2024-07-31] MEDS: CEFEPIME 1GM PREMIX 50ML IV SCH (15:45)
[2024-07-31] MEDS: GUAIFENESIN/DM 600MG/30MG ER TAB 12HR PO SCH (15:46)
[2024-07-31] MEDS: PROMETHAZINE/DEXTROMETHORPHAN 6.25-15MG/5ML PO SCH (18:36)
[2024-07-31 19:19] LABS: CREATINE KINASE MB FRACTION 0.7 ng/mL (0.5-3.6)
[2024-07-31 22:05] LABS: HEMATOCRIT 23.6 % (36.0-48.0); HEMOGLOBIN 7.8 g/dL (12.0-16.0); MEAN CORPUSCULAR HEMOGLOBIN 32.3 pg (28.0-32.0); MEAN CORPUSCULAR HGB CONC 33.2 g/dL (31.0-37.0); MEAN CORPUSCULAR VOLUME 97.5 fL (81.0-99.0); PLATELET 144 x1000/uL (130-400); RED BLOOD CELL COUNT 2.42 mill/uL (4.2-5.4); RED CELL DISTRIBUTION WIDTH 16.9 % (11.6-14.6); WHITE BLOOD COUNT 6.9 x1000/uL (4.5-11.0)
[2024-07-31] MEDS: DILTIAZEM HCL 5MG/ML 5ML VIAL IV NR (22:10)
[2024-08-01] VITALS (23 sets, daily range): BP systolic 107–192; BP diastolic 56–95; PULSE 64–84; RESP 12–19; TEMP 36.3918–37.2; O2SAT 96–100
[2024-08-01] MEDS: CLONIDINE 0.1MG TABLET PO PRN (03:17)
[2024-08-01 08:16] LABS: BASOPHILS % 0.1 % (0.0-2.0); EOSINOPHILS % 0.5 % (0.0-5.0); HEMATOCRIT. 21.6 % (36.0-48.0); HEMOGLOBIN. 7.1 g/dL (12.0-16.0); LYMPHOCYTES % 25.5 % (20.0-50.0); MEAN CORPUSCULAR HEMOGLOBIN 31.6 pg (28.0-32.0); MEAN CORPUSCULAR HGB CONC 32.9 g/dL (31.0-37.0); MEAN PLATELET VOLUME 9.3 fl (7.4-10.4); MONOCYTES % 6.3 % (2.0-8.0); NEUTROPHILS % 67.6 % (40.0-76.0); PLATELET 130 x1000/uL (130-400); RED BLOOD CELL COUNT 2.25 mill/uL (4.2-5.4); RED CELL DISTRIBUTION WIDTH 16.8 % (11.6-14.6); WHITE BLOOD COUNT 6.8 x1000/uL (4.5-11.0)
[2024-08-01 08:31] LABS: POTASSIUM 4.2 mEq/L (3.5-5.1)
[2024-08-01 08:32] LABS: CALCIUM 7.2 mg/dL (8.7-10.4)
[2024-08-01 08:49] LABS: CREATININE 8.2 mg/dL (0.6-1.0)
[2024-08-01] MEDS: ENOXAPARIN 30MG/0.3ML SYR SUBCUT SCH (09:31)
[2024-08-01] MEDS: ONDANSETRON HCL 4MG/2ML INJ IV PRN (13:20)
[2024-08-02] VITALS (16 sets, daily range): BP systolic 131–169; BP diastolic 56–76; PULSE 59–68; RESP 11–20; TEMP 36.4–37.4; O2SAT 93–100
[2024-08-02 07:58] LABS: BASOPHILS % 0.2 % (0.0-2.0); EOSINOPHILS % 0.8 % (0.0-5.0); HEMATOCRIT. 22.9 % (36.0-48.0); HEMOGLOBIN. 7.5 g/dL (12.0-16.0); LYMPHOCYTES % 25.1 % (20.0-50.0); MEAN CORPUSCULAR HEMOGLOBIN 31.4 pg (28.0-32.0); MEAN CORPUSCULAR HGB CONC 32.5 g/dL (31.0-37.0); MEAN CORPUSCULAR VOLUME 96.5 fL (81.0-99.0); MEAN PLATELET VOLUME 9.9 fl (7.4-10.4); MONOCYTES % 7.9 % (2.0-8.0); PLATELET 150 x1000/uL (130-400); RED BLOOD CELL COUNT 2.38 mill/uL (4.2-5.4); RED CELL DISTRIBUTION WIDTH 16.8 % (11.6-14.6); WHITE BLOOD COUNT 6.4 x1000/uL (4.5-11.0)
[2024-08-02 08:18] LABS: CHLORIDE 96 mEq/L (98-107); POTASSIUM 4.9 mEq/L (3.5-5.1)
[2024-08-02 08:19] LABS: CARBON DIOXIDE 27 mEq/L (21-32); SODIUM 135 mEq/L (136-145)
[2024-08-02 08:20] LABS: CALCIUM 7.9 mg/dL (8.7-10.4)
[2024-08-02 08:24] LABS: GLUCOSE 85 mg/dL (70-105)
[2024-08-02 08:25] LABS: UREA NITROGEN BLOOD 69 mg/dL (9-23)
[2024-08-02 08:36] LABS: CREATININE 7.7 mg/dL (0.6-1.0)
[2024-08-02] MEDS: CARVEDILOL 3.125 MG TABLET PO SCH (12:05)
[2024-08-03] VITALS (9 sets, daily range): BP systolic 153–178; BP diastolic 59–136; PULSE 62–77; RESP 12–18; TEMP 36.6–37.1; O2SAT 93–100
[2024-08-03 07:04] LABS: EOSINOPHILS % 2.1 % (0.0-5.0); HEMATOCRIT. 22.2 % (36.0-48.0); HEMOGLOBIN. 7.4 g/dL (12.0-16.0); LYMPHOCYTES % 22.9 % (20.0-50.0); MEAN CORPUSCULAR HEMOGLOBIN 32.3 pg (28.0-32.0); MEAN CORPUSCULAR HGB CONC 33.5 g/dL (31.0-37.0); MEAN CORPUSCULAR VOLUME 96.3 fL (81.0-99.0); MEAN PLATELET VOLUME 8.4 fl (7.4-10.4); MONOCYTES % 6.1 % (2.0-8.0); NEUTROPHILS % 68.9 % (40.0-76.0); PLATELET 131 x1000/uL (130-400); RED CELL DISTRIBUTION WIDTH 16.8 % (11.6-14.6); WHITE BLOOD COUNT 6.9 x1000/uL (4.5-11.0)
[2024-08-03 07:40] LABS: CARBON DIOXIDE 25 mEq/L (21-32); CHLORIDE 97 mEq/L (98-107); POTASSIUM 5.2 mEq/L (3.5-5.1); SODIUM 137 mEq/L (136-145)
[2024-08-03 07:42] LABS: CALCIUM 7.3 mg/dL (8.7-10.4)
[2024-08-03 07:46] LABS: GLUCOSE 87 mg/dL (70-105)
[2024-08-03 07:47] LABS: UREA NITROGEN BLOOD 86 mg/dL (9-23)
[2024-08-03 08:25] LABS: CREATININE 8.9 mg/dL (0.6-1.0)
[2024-08-03] MEDS: SODIUM ZIRCONIUM CYCLOSILICATE 10GM/PACKET PO NR (08:47)
[2024-08-03] MEDS ORDERED: METO-396 PO (10:08)
[2024-08-03] MEDS ORDERED: FAMO20TA8 PO (10:09)
[2024-08-03] MEDS ORDERED: CALC667C PO (10:09)
[2024-08-03] MEDS ORDERED: FURO-151 MT (10:09)
== END 2024-08-03 16:10 | disposition home health service (06) | DRG 280 ==
LOC: ER 08:08 → EDBEDREQTM 08:58 → EDBEDREQ 08:58 → EDBEDREQSVC 08:58 → 5EST 17:30
PROVIDERS: ADMIT Internal Medicine; ATTEND Internal Medicine
PROC: 5A09357 Assistance with Respiratory Ventilation, Less than 24 Consecutive Hours, Continuous Positive Airway Pressure (ICD-10-PCS; principal; 2024-07-28)
PROC: 5A1D70Z Performance of Urinary Filtration, Intermittent, Less than 6 Hours Per Day (ICD-10-PCS; 2024-07-28)
PROC: 5A1D70Z Performance of Urinary Filtration, Intermittent, Less than 6 Hours Per Day (ICD-10-PCS; 2024-07-30)
PROC: 5A1D70Z Performance of Urinary Filtration, Intermittent, Less than 6 Hours Per Day (ICD-10-PCS; 2024-08-01)
DX: I13.2 Hypertensive heart and chronic kidney disease with heart failure and with stage 5 chronic kidney disease, or end stage renal disease (principal); I50.33 Acute on chronic diastolic (congestive) heart failure; I21.A1 Myocardial infarction type 2; J96.21 Acute and chronic respiratory failure with hypoxia; N18.6 End stage renal disease; J44.1 Chronic obstructive pulmonary disease with (acute) exacerbation; D72.829 Elevated white blood cell count, unspecified; D53.9 Nutritional anemia, unspecified; Z99.2 Dependence on renal dialysis; I16.0 Hypertensive urgency; I27.20 Pulmonary hypertension, unspecified; E11.22 Type 2 diabetes mellitus with diabetic chronic kidney disease; E11.42 Type 2 diabetes mellitus with diabetic polyneuropathy; E78.5 Hyperlipidemia, unspecified; E83.39 Other disorders of phosphorus metabolism; E83.42 Hypomagnesemia; J06.9 Acute upper respiratory infection, unspecified; Z79.899 Other long term (current) drug therapy; Z86.73 Personal history of transient ischemic attack (TIA), and cerebral infarction without residual deficits; Z87.891 Personal history of nicotine dependence; Z95.2 Presence of prosthetic heart valve; Z99.81 Dependence on supplemental oxygen
CPT/HCPCS: 36415; 71045; 80048; 82553; 82607; 82728; 82746; 82962; 83036; 83540; 83550; 83605; 83735; 84100; 84145; 84439; 84443; 84484; 85025; 85027; 85044; 85379; 86705; 86709; 86850; 86900; 86920; 87340; 90935; 93005; 93970; 94070; 94640; 94660; 97162; 97167; 97530; 98960; 99291; A4606; J0360; J0692; J1650; J1815; J1940; J2405; J2919; J3475; J3490; J7512

== ENCOUNTER 2025-03-04 00:17 | Inpatient (IN) | payer MEDICARE, MEDICAID ==
[2025-03-04] VITALS (20 sets, daily range): BP systolic 141–194; BP diastolic 66–168; PULSE 75–108; RESP 17–32; TEMP 36.3918–37.11408; O2SAT 96–100
[~2025-03-04] VITALS: Ht 162.6 cm; Wt 71.0 kg
[~2025-03-04 00:17] MED LIST changes: +ALBU18HF2 IH; -ALBU6.7H15 IH; +CALC667C PO; +CEFD300C3 MT; +LISI20TA31 PO; -LOSA100T33 MT; +METO-396 PO; -METO-539 MT; -SODI45SP7 NS
[2025-03-04] MEDS: METHYLPREDNISOLONE SOD SUCC 125MG/2ML (ACT-O-VIAL) IV ONE (01:10)
[2025-03-04] MEDS: NITROGLYCERIN OINT 1GM/INCH UDPKT TD ONE (01:11)
[2025-03-04] MEDS: FUROSEMIDE 40MG/4ML VIAL IV ONE (01:11)
[2025-03-04] MEDS: HYDRALAZINE 20MG/ML VIAL IV ONE (01:13)
[2025-03-04] MEDS: IPRATROPIUM BROMIDE (0.02%) 0.5MG/2.5ML NEB HHN ONE (01:14)
[2025-03-04] MEDS: ALBUTEROL (0.083%) 2.5MG/3ML NEB HHN ONE (01:14)
[2025-03-04 01:45] LABS: HEMATOCRIT. 37.0 % (36.0-48.0); HEMOGLOBIN. 11.9 g/dL (12.0-16.0); MEAN PLATELET VOLUME 8.4 fl (7.4-10.4); PLATELET 269 x1000/uL (130-400); RED BLOOD CELL COUNT 3.62 mill/uL (4.2-5.4); RED CELL DISTRIBUTION WIDTH 17.0 % (11.6-14.6)
[2025-03-04 02:02] LABS: INR 1.0; LYMPHOCYTES % MANUAL 11.0 % (20.0-60.0); MONOCYTES % MANUAL 5.0 % (2.0-8.0); NEUTROPHILS % MANUAL 84.0 % (45.0-75.0); PLATELET ESTIMATE NORMAL
[2025-03-04 02:05] LABS: ASPARTATE AMINOTRANSFERASE 43 IU/L (<34)
[2025-03-04 02:06] LABS: BILIRUBIN DIRECT 0.3 mg/dL (<=3.0); BILIRUBIN TOTAL 0.5 mg/dL (0.1-1.0); PROTEIN TOTAL 7.7 g/dL (6.0-8.3)
[2025-03-04 02:09] LABS: CREATININE 13.3 mg/dL (0.6-1.0); UREA NITROGEN BLOOD 106 mg/dL (9-23)
[2025-03-04 02:10] LABS: TROPONIN I HIGH SENSITIVITY 427 ng/L (3.0-34)
[2025-03-04 03:35] LABS: BG DEOXYHEMOGLOBIN 12.9 % (0.0-5.0)
[2025-03-04] MEDS: SODIUM ZIRCONIUM CYCLOSILICATE 10GM/PACKET PO NR (03:43)
[2025-03-04] MEDS: CEFTRIAXONE 1GM/50ML 50 ML IV ONE (03:43)
[2025-03-04 04:30] LABS: TROPONIN I HIGH SENSITIVITY 400 ng/L (3.0-34)
[2025-03-04] MEDS ORDERED: GUAIFENESIN 200MG/10ML SUGAR FREE UDC PO PRN (05:00)
[2025-03-04] MEDS ORDERED: IPRATROPIUM/ALBUTEROL 0.5-3(2.5)MG/3ML NEB HHN PRN (05:00)
[2025-03-04] MEDS ORDERED: LORAZEPAM 0.5MG TABLET PO PRN (05:00)
[2025-03-04] MEDS ORDERED: ACETAMINOPHEN 325MG TABLET PO PRN (05:00)
[2025-03-04] MEDS ORDERED: ONDANSETRON HCL 4MG/2ML INJ IV PRN (05:00)
[2025-03-04] MEDS ORDERED: DIPHENHYDRAMINE 50MG/ML VIAL IV PRN (05:00)
[2025-03-04] MEDS ORDERED: DEXTROSE 50% WATER 50ML SYRINGE IV PRN (05:15)
[2025-03-04 06:34] LABS: INFLUENZA TYPE A Presumptive Negative (Pres. Neg.)
[2025-03-04 06:36] LABS: INFLUENZA TYPE B Presumptive Negative (Pres. Neg.)
[2025-03-04] MEDS: METHYLPREDNISOLONE SOD SUCC 125MG/2ML (ACT-O-VIAL) IV SCH (06:52)
[2025-03-04] MEDS: AZITHROMYCIN 500MG/250ML 250 ML IV SCH (07:43)
[2025-03-04] MEDS: SILDENAFIL CITRATE 20MG TABLET PO SCH (08:00)
[2025-03-04] MEDS: IPRATROPIUM/ALBUTEROL 0.5-3(2.5)MG/3ML NEB HHN SCH (08:10)
[2025-03-04] MEDS: BUDESONIDE 0.5MG/2ML NEB HHN SCH (08:10)
[2025-03-04] MEDS: INSULIN LISPRO 100 UNITS/ML SUBCUT SCH (08:20)
[2025-03-04] MEDS ORDERED: METOPROLOL TARTRATE 25MG TABLET PO SCH (09:00)
[2025-03-04] MEDS: FUROSEMIDE 40MG/4ML VIAL IV SCH (09:59)
[2025-03-04] MEDS: ASPIRIN 81MG EC TABLET PO SCH (09:59)
[2025-03-04] MEDS: BLOOD SUGAR DIAGNOSTIC STRIP TEST SCH (09:59)
[2025-03-04 12:00] LABS: HEPATITIS A AB IGM NEGATIVE (Negative)
[2025-03-04 12:01] LABS: HEPATITIS B CORE AB IGM NEGATIVE (Negative); HEPATITIS C AB NON REACTIVE (Neg) (Negative)
[2025-03-04] MEDS: HYDRALAZINE HCL 50MG TABLET PO SCH (13:29)
[2025-03-04] MEDS: LISINOPRIL 20MG TABLET PO SCH (13:29)
[2025-03-04] MEDS: AMLODIPINE 10MG TABLET PO SCH (13:30)
[2025-03-04] MEDS: SODIUM ZIRCONIUM CYCLOSILICATE 10GM/PACKET PO SCH ×2 (13:35→13:42)
[2025-03-04] MEDS: PREDNISONE 20MG TABLET PO SCH (17:32)
[2025-03-04] MEDS: CLONIDINE 0.1MG TABLET PO PRN (17:32)
[2025-03-04] MEDS: ATORVASTATIN CALCIUM 40MG TABLET PO SCH (22:56)
[2025-03-05] VITALS (24 sets, daily range): BP systolic 116–176; BP diastolic 48–129; PULSE 79–97; RESP 15–28; TEMP 36.4–37.2; O2SAT 93–100
[2025-03-05 06:49] LABS: BASOPHILS % 0.1 % (0.0-2.0); EOSINOPHILS % 0.1 % (0.0-5.0); HEMATOCRIT. 30.9 % (36.0-48.0); HEMOGLOBIN. 10.0 g/dL (12.0-16.0); LYMPHOCYTES % 15.1 % (20.0-50.0); MEAN PLATELET VOLUME 8.0 fl (7.4-10.4); MONOCYTES % 13.1 % (2.0-8.0); NEUTROPHILS % 71.6 % (40.0-76.0); PLATELET 163 x1000/uL (130-400); RED BLOOD CELL COUNT 3.09 mill/uL (4.2-5.4); RED CELL DISTRIBUTION WIDTH 16.6 % (11.6-14.6)
[2025-03-05 06:56] LABS: T4 FREE 1.19 ng/dL (0.89-1.76); TRIGLYCERIDE 109.0 mg/dL (0-150)
[2025-03-05 06:57] LABS: ASPARTATE AMINOTRANSFERASE 25 IU/L (<34); BILIRUBIN DIRECT 0.3 mg/dL (<=3.0); BILIRUBIN TOTAL 0.5 mg/dL (0.1-1.0); LDL CHOLESTEROL 90.0 mg/dL (5-100); PROTEIN TOTAL 6.0 g/dL (6.0-8.3)
[2025-03-05 08:19] LABS: BG BASE EXCESS 2.2 mmol/L (-2.0-3.0); BG CARBOXYHEMOGLOBIN 0.8 % (0.5-1.5); BG DEOXYHEMOGLOBIN 6.2 % (0.0-5.0); BG FRACTION INSPIRED OXYGEN 30; BG HCO3 ACT 25.3 mmol/L (21.0-28.0); BG METHEMOGLOBIN 0.3 % (0.5-1.5); BG OXYGEN SATURATION 93.7 % (94.0-98.0); BG OXYHEMOGLOBIN 92.7 % (94.0-98.0); BG PCO2 33.6 mmHg (32.0-45.0); BG PH 7.494 (7.350-7.450); BG PO2 70.3 mmHg (83.0-108.0); BG SAMPLE SITE RIGHT RADIAL; BG TOTAL HEMOGLOBIN 10.5 g/dL (12.0-16.0); BG VENT MODE MASK - BIPAP; BG VENT RATE 20.0 set
[2025-03-05] MEDS: FAMOTIDINE 20MG/2ML VIAL IV SCH (12:26)
[2025-03-05] MEDS: GUAIFENESIN 600MG ER TABLET PO SCH (12:27)
[2025-03-05] MEDS: ACETAMINOPHEN 325MG TABLET PO PRN (15:45)
[2025-03-05] MEDS: ENOXAPARIN 30MG/0.3ML SYR SUBCUT SCH (17:00)
[2025-03-05] MEDS: FOLIC ACID 1MG TABLET PO SCH (18:40)
[2025-03-05 19:26] LABS: HEMATOCRIT. 34.8 % (36.0-48.0); HEMOGLOBIN. 11.0 g/dL (12.0-16.0); MEAN PLATELET VOLUME 9.2 fl (7.4-10.4); PLATELET 193 x1000/uL (130-400); RED BLOOD CELL COUNT 3.43 mill/uL (4.2-5.4); RED CELL DISTRIBUTION WIDTH 17.0 % (11.6-14.6)
[2025-03-05 19:36] LABS: UREA NITROGEN BLOOD 53.0 mg/dL (9-23)
[2025-03-05 19:46] LABS: CREATININE 9.8 mg/dL (0.6-1.0)
[2025-03-05 23:24] LABS: LYMPHOCYTES % MANUAL 6.0 % (20.0-60.0); MONOCYTES % MANUAL 7.0 % (2.0-8.0); NEUTROPHILS % MANUAL 87.0 % (45.0-75.0); PLATELET ESTIMATE NORMAL
[2025-03-06] VITALS (12 sets, daily range): BP systolic 137–177; BP diastolic 61–130; PULSE 82–113; RESP 17–28; TEMP 36.4–36.6; O2SAT 92–100
[2025-03-06 06:23] LABS: BASOPHILS % 0.2 % (0.0-2.0); EOSINOPHILS % 0.0 % (0.0-5.0); HEMATOCRIT. 35.3 % (36.0-48.0); HEMOGLOBIN. 11.4 g/dL (12.0-16.0); LYMPHOCYTES % 21.9 % (20.0-50.0); MEAN PLATELET VOLUME 9.0 fl (7.4-10.4); MONOCYTES % 14.0 % (2.0-8.0); NEUTROPHILS % 63.9 % (40.0-76.0); PLATELET 183 x1000/uL (130-400); RED BLOOD CELL COUNT 3.50 mill/uL (4.2-5.4); RED CELL DISTRIBUTION WIDTH 16.4 % (11.6-14.6)
[2025-03-06 06:39] LABS: UREA NITROGEN BLOOD 71.0 mg/dL (9-23)
[2025-03-06 08:08] LABS: CREATININE 10.8 mg/dL (0.6-1.0)
[2025-03-06] MEDS: AZITHROMYCIN 500 MG TABLET PO SCH (09:10)
[2025-03-06] MEDS: PREDNISONE 10MG TABLET PO SCH (09:10)
[2025-03-06] MEDS: CYANOCOBALAMIN 1000MCG TABLET PO SCH (09:11)
[2025-03-06] MEDS: FAMOTIDINE 20MG TABLET PO SCH (09:11)
[2025-03-06] MEDS ORDERED: ASPI-1406 MT (12:28)
[2025-03-06] MEDS ORDERED: CYAN-50 PO (12:28)
[2025-03-06] MEDS ORDERED: GUAI600T44 PO (12:28)
[2025-03-06] MEDS ORDERED: FAMO20TA8 PO (12:28)
[2025-03-06] MEDS ORDERED: PRED10TA PO (12:28)
[2025-03-06] MEDS ORDERED: FOLI-43 PO (12:28)
== END 2025-03-06 16:25 | disposition home or self-care (01) | DRG 280 ==
LOC: ER 00:17 → 5EST 03:38 → EDBEDREQTM 04:03 → EDBEDREQ 04:03 → CANRESERV 08:16 → ENRESERV 08:16
PROVIDERS: ADMIT Internal Medicine; ATTEND Internal Medicine
PROC: 5A09357 Assistance with Respiratory Ventilation, Less than 24 Consecutive Hours, Continuous Positive Airway Pressure (ICD-10-PCS; principal; 2025-03-04)
PROC: 5A1D70Z Performance of Urinary Filtration, Intermittent, Less than 6 Hours Per Day (ICD-10-PCS; 2025-03-04)
PROC: 5A09357 Assistance with Respiratory Ventilation, Less than 24 Consecutive Hours, Continuous Positive Airway Pressure (ICD-10-PCS; 2025-03-05)
PROC: 5A1D70Z Performance of Urinary Filtration, Intermittent, Less than 6 Hours Per Day (ICD-10-PCS; 2025-03-05)
DX: I13.2 Hypertensive heart and chronic kidney disease with heart failure and with stage 5 chronic kidney disease, or end stage renal disease (principal); I50.43 Acute on chronic combined systolic (congestive) and diastolic (congestive) heart failure; I21.A1 Myocardial infarction type 2; J96.01 Acute respiratory failure with hypoxia; N18.6 End stage renal disease; J44.1 Chronic obstructive pulmonary disease with (acute) exacerbation; I16.1 Hypertensive emergency; E87.20 Acidosis, unspecified; Z99.81 Dependence on supplemental oxygen; E11.22 Type 2 diabetes mellitus with diabetic chronic kidney disease; I27.20 Pulmonary hypertension, unspecified; E79.0 Hyperuricemia without signs of inflammatory arthritis and tophaceous disease; I35.0 Nonrheumatic aortic (valve) stenosis; E78.5 Hyperlipidemia, unspecified; E87.5 Hyperkalemia; D64.9 Anemia, unspecified; Z95.2 Presence of prosthetic heart valve; Z99.2 Dependence on renal dialysis; Z86.73 Personal history of transient ischemic attack (TIA), and cerebral infarction without residual deficits; Z20.822 Contact with and (suspected) exposure to COVID-19
CPT/HCPCS: 36415; 36600; 71045; 80048; 80061; 80076; 82375; 82803; 82805; 82962; 83036; 83880; 84439; 84443; 84481; 84484; 85025; 86705; 86709; 87340; 87426; 87804; 90935; 93005; 93970; 94070; 94640; 94660; 94664; 96374; 96375; 97166; 99285; A4606; J0360; J0456; J0696; J1308; J1650; J1938; J2919; J7512; J7626